=== PATIENT | male | born 1945 | race Caucasian/White ===

== ENCOUNTER 2017-08-27 08:55 | Inpatient (IN) ==
[2017-10-01] MEDS ORDERED: Acetaminophen 325 MG Tablet PO PRN (01:00)
[2017-10-01] MEDS ORDERED: Haloperidol Inj 5 MG/ML Ampul IV.PUSH PRN (01:00)
[2017-10-01] MEDS ORDERED: Chlorhexidine Gluconate 2% 1 Pack (2 Cloths) TOPICAL PRN ×2 (01:00→04:00)
[2017-10-01] MEDS ORDERED: Bisacodyl 10 MG Supp RECTAL PRN (01:00)
[2017-10-01] MEDS ORDERED: Metoprolol Inj 5 MG/5 ML Vial IV.PUSH PRN (01:00)
[2017-10-01] MEDS ORDERED: Chlorhexidine Gluconate 2% 1 Pack (2 Cloths) TOPICAL SCH ×4 (04:00)
[2017-10-01] MEDS: Chlorhexidine Gluconate 2% 1 Pack (2 Cloths) TOPICAL SCH (04:38)
[2017-10-01] MEDS: dilTIAZem CD 180 MG Capsule PO SCH (08:12)
[2017-10-01] MEDS: Metoprolol Tartrate 25 MG Tablet PO SCH ×2 (08:12→21:17)
[2017-10-01] MEDS ORDERED: Famotidine 20 MG Tablet PO SCH (09:00)
--- NOTE | 2017-10-01 14:13 | P.PN ---
Subjective Interval history: Mr. Montemayor was afebrile with stable vital signs at this time. Patient does not reports currently; no chest pain, shortness of breath, abnormal bowel movements , or abnormal urination. Patient expresses a desire to leave the hospital Physical Exam Vital signs: Vital Signs 10/01/17 00:00 10/01/17 00:12 10/01/17 04:00 Temperature 97.7 F 98.0 F Pulse Rate 84 93 H 93 H Respiratory Rate 18 18 Blood Pressure 124/67 115/66 Pulse Oximetry 95 98 10/01/17 08:00 10/01/17 12:00 Temperature 98.2 F 98.0 F Pulse Rate 95 H 89 Respiratory Rate 17 18 Blood Pressure 114/66 106/60 Pulse Oximetry 98 96 Intake & Output 09/30/17 10/01/17 10/01/17 18:59 06:59 18:59 Intake Total 120 / 120 Output Total 200 / 200 Balance -80 / -80 Weight 75.4 kg 75.6 kg Intake: Oral 120 / 120 Output: Urine 200 / 200 Other: # Voids 1 # Bowel Movements 1 Narrative: GENERAL:No apparent distress. Skin: No visible lesions CARDIOVASCULAR: Normal rate and regular rhythm without murmurs. Normal peripheral perfusion RESPIRATORY: Breath sounds equal and clear to auscultation bilaterally. GASTROINTESTINAL: Abdomen soft, non-tender. Normal active bowel sounds Neuro: No focal CN defects. Peripheral motor/sensory function not assessed Results - Labs CBC & Chem 7: 09/29/17 08:35 09/19/17 05:55 Labs: Laboratory Results - last 24 hr 09/29/17 08:35 WBC 5.7 RBC 3.98 L Hgb 12.0 L Hct 35.5 L MCV 89.1 MCH 30.2 MCHC 33.9 RDW 15.8 Plt Count 268 D MPV 7.7 Assessment and Plan - Assessment (1) Pulmonary embolism Code(s): I26.99 - Other pulmonary embolism without acute cor pulmonale Status : Acute (2) Encephalopathy Code(s): G93.40 - Encephalopathy, unspecified Status: Acute (3) Acute respiratory failure with hypoxia Code(s): J96.01 - Acute respiratory failure with hypoxia Status: Resolved (4) Anemia Code(s): D64.9 - Anemia, unspecified Status: Acute - Plan Assessment: 71-year-old male patient who was admitted secondary to respiratory failure, cardiac arrest, PE, and delirium encephalopathy. Patient remains encephalopathic. He needs a guardian appointed. Delirium, metabolic encephalopathy vs some anoxic encephalopathy- Improved Seroquel discontinued. Neurological status stable with no significant improvement. Neurology following Dysphagia Soft Mechanical with [place] Thick liquids PE Impression: Bilateral pulmonary embolism with cardiac arrest. Required intubation on 08/27/2017 extubated on 09/04/2017. s/p TPA Echocardiogram shows ejection fraction of 50-60%, right atrium severely dilated. Stable from a cardiac standpoint -Continue Eliquis Atrial fibrillation Impression: rate currently stable; no recent RVR - on Eliquis - on Cardizem 180 mg po daily - on Lopressor 25 mg po bid - - continue to monitor and adjust History of respiratory failure Impression: Cardiac arrest secondary PE. Intubated; extubated 09/04. Subsequent pleural effusion requiring chest tube placement and subsequent removal 09/13; prior diagnosis of haemophilus influenza pneumonia; s/p Rocephin -Stable respiratory status currently Anemia Impression: stable; reticulocyte count low normal -Hematology consulted Hemoccult-positive stool: No evidence of active GI bleeding Follow CBC- stable Follow for recurrence DVT prophylaxis Eliquis Code Status: DNR Discharge Planning: Palliative care consulted Awaiting guardianship for placement (4) Anemia Qualifiers: Anemia type: unspecified type Qualified Code(s): D64.9 - Anemia, unspecified
[2017-10-02 06:50] LABS: Baso % (Auto) 0.6 % (0.0-2.0); Eos % (Auto) 0.8 % (0.0-4.0); Hematocrit 33.9 % (39.0-51.0); Hemoglobin 11.5 gm/dL (13.0-17.0); Lymph # (Auto) 2.7 th/mm3 (1.0-4.8); Lymph % (Auto) 48.1 % (9.0-44.0); Mean Corpuscular HGB Conc 33.9 % (32.0-36.0); Mean Corpuscular Hemoglobin 29.9 pg (27.0-34.0); Mean Corpuscular Volume 88.2 fL (80.0-100.0); Mean Platelet Volume 7.4 fL (7.0-11.0); Mono # (Auto) 0.8 th/mm3 (0.0-0.9); Mono % (Auto) 15.1 % (0.0-8.0); Neut % (Auto) 35.4 % (16.0-70.0); Platelet Count 317 th/mm3 (150-450); Red Blood Count 3.85 mil/mm3 (4.50-5.90); Red Cell Distribution Width 15.7 % (11.6-17.2); White Blood Count 5.6 th/mm3 (4.0-11.0)
[2017-10-02 07:35] LABS: Anion Gap 8 meq/L (5-15); Blood Urea Nitrogen 8 mg/dL (7-18); Carbon Dioxide 27.7 meq/L (21.0-32.0); Chloride 102 meq/L (98-107); Glomerular Filtration Rate Greater Than 89 mL/min (>89); Glucose,Random 93 mg/dL (74-106); Potassium 4.2 meq/L (3.5-5.1); Sodium 138 meq/L (136-145)
[2017-10-02] MEDS: Metoprolol Tartrate 25 MG Tablet PO SCH ×2 (10:23→22:01)
[2017-10-02] MEDS: dilTIAZem CD 180 MG Capsule PO SCH (10:23)
--- NOTE | 2017-10-02 14:37 | P.PN ---
Subjective Interval history: Mr. Montemayor was afebrile with stable vital signs overnight. Patient states that he would like to leave the hospital. Patient seen eating lunch; patient does not report chest pain, shortness of breath, abnormal bowel movements, or abnormal urination. Physical Exam Vital signs: Vital Signs 10/01/17 16:00 10/01/17 20:00 10/01/17 21:09 Temperature 98.2 F 98.0 F Pulse Rate 98 H 95 H 99 H Respiratory Rate 17 18 Blood Pressure 134/65 122/68 Pulse Oximetry 99 98 10/02/17 00:00 10/02/17 00:30 10/02/17 04:00 Temperature 97.4 F L Pulse Rate 88 84 88 Respiratory Rate 18 Blood Pressure 120/70 Pulse Oximetry 100 10/02/17 06:08 10/02/17 08:00 10/02/17 12:00 Temperature 97.9 F 97.8 F 97.9 F Pulse Rate 90 96 H 102 H Respiratory Rate 17 17 18 Blood Pressure 117/71 122/75 136/75 Pulse Oximetry 98 100 99 Intake & Output 10/01/17 10/02/17 10/02/17 18:59 06:59 18:59 Intake Total 480 / 480 420 / 420 Output Total 700 / 700 Balance 480 / 480 -280 / -280 Weight 75.5 kg Intake: Oral 480 / 480 420 / 420 Output: Urine 700 / 700 Other: # Voids 3 # Bowel Movements 1 0 Narrative: GENERAL:No apparent distress. Skin: No visible lesions CARDIOVASCULAR: Normal rate and regular rhythm without murmurs. Normal peripheral perfusion RESPIRATORY: Breath sounds equal and clear to auscultation bilaterally. GASTROINTESTINAL: Abdomen soft, non-tender. Normal active bowel sounds Neuro: No focal CN defects. Peripheral motor/sensory function not assessed Results - Labs CBC & Chem 7: 10/02/17 05:58 10/02/17 05:58 Laboratory Results - last 24 hr 10/02/17 10/02/17 05:58 05:58 WBC 5.6 RBC 3.85 L Hgb 11.5 L Hct 33.9 L MCV 88.2 MCH 29.9 MCHC 33.9 RDW 15.7 Plt Count 317 MPV 7.4 Neut % (Auto) 35.4 Lymph % (Auto) 48.1 H [place] % (Auto) 15.1 H Eos % (Auto) 0.8 Baso % (Auto) 0.6 Neut # (Auto) 2.0 Lymph # (Auto) 2.7 [place] # (Auto) 0.8 Eos # (Auto) 0.0 Baso # (Auto) 0.0 WBC Differential . Differential Comment Auto diff final Sodium 138 Potassium 4.2 Chloride 102 Carbon Dioxide 27.7 Anion Gap 8 BUN 8 Creatinine 0.60 Estimated GFR Greater than 89 Random Glucose 93 Calcium 8.0 L Assessment and Plan - Assessment (1) Pulmonary embolism Code(s): I26.99 - Other pulmonary embolism without acute cor pulmonale Status : Acute (2) Encephalopathy Code(s): G93.40 - Encephalopathy, unspecified Status: Acute (3) Acute respiratory failure with hypoxia Code(s): J96.01 - Acute respiratory failure with hypoxia Status: Resolved (4) Anemia Code(s): D64.9 - Anemia, unspecified Status: Acute - Plan Assessment: 71-year-old male patient who was admitted secondary to respiratory failure, cardiac arrest, PE, and delirium encephalopathy. Patient remains encephalopathic. He needs a guardian appointed. Delirium, metabolic encephalopathy vs some anoxic encephalopathy- Improved Seroquel discontinued. Neurological status stable with no significant improvement. Neurology following Dysphagia Soft Mechanical with [place] Thick liquids PE Impression: Bilateral pulmonary embolism with cardiac arrest. Required intubation on 08/27/2017 extubated on 09/04/2017. s/p TPA Echocardiogram shows ejection fraction of 50-60%, right atrium severely dilated. Stable from a cardiac standpoint -Continue Eliquis Atrial fibrillation Impression: rate currently stable; no recent RVR - on Eliquis - on Cardizem 180 mg po daily - on Lopressor 25 mg po bid - continue to monitor and adjust History of respiratory failure Impression: Cardiac arrest secondary PE. Intubated; extubated 09/04. Subsequent pleural effusion requiring chest tube placement and subsequent removal 09/13; prior diagnosis of haemophilus influenza pneumonia; s/p Rocephin -Stable respiratory status currently Anemia Impression: stable; reticulocyte count low normal -Hematology consulted Hemoccult-positive stool: No evidence of active GI bleeding Follow CBC- stable Follow for recurrence DVT prophylaxis Eliquis Discharge Planning: Palliative care consulted Awaiting guardianship for placement (4) Anemia Qualifiers: Anemia type: unspecified type Qualified Code(s): D64.9 - Anemia, unspecified
[2017-10-03] MEDS: Metoprolol Tartrate 25 MG Tablet PO SCH ×2 (08:38→21:03)
[2017-10-03] MEDS: dilTIAZem CD 180 MG Capsule PO SCH (08:38)
--- NOTE | 2017-10-03 16:26 | P.PN ---
Subjective Interval history: Mr. Montemayor was afebrile with stable vital signs overnight. Patient states that he would not like to get out of bed today. No chest pain, shortness of breath, abnormal bowel movements, or abnormal urination reported. Physical Exam Vital signs: Vital Signs 10/02/17 20:00 10/03/17 00:00 10/03/17 04:00 Temperature 98.0 F 98.0 F 98.1 F Pulse Rate 90 79 84 Respiratory Rate 17 17 17 Blood Pressure 125/72 96/56 L 108/64 Pulse Oximetry 97 96 96 10/03/17 08:00 10/03/17 12:00 Temperature 97.2 F L 98.4 F Pulse Rate 83 78 Respiratory Rate 20 20 Blood Pressure 126/74 107/59 L Pulse Oximetry 95 96 Intake & Output 10/02/17 10/03/17 10/03/17 18:59 06:59 18:59 Intake Total 600 / 600 240 / 240 Output Total 400 / 400 Balance 600 / 600 -160 / -160 Weight 74.8 kg Intake: Oral 600 / 600 240 / 240 Output: Urine 400 / 400 Other: # Voids 3 1 Date of Last Bowel Movement 10/02/17 # Bowel Movements 1 Narrative: GENERAL:No apparent distress. Skin: No visible lesions CARDIOVASCULAR: Normal rate and regular rhythm without murmurs. Normal peripheral perfusion RESPIRATORY: Breath sounds equal and clear to auscultation bilaterally. GASTROINTESTINAL: Abdomen soft, non-tender. Normal active bowel sounds MSK: No LE edema or calf tenderness Neuro: No focal CN defects. Peripheral motor/sensory function not assessed Results - Labs CBC & Chem 7: 10/02/17 05:58 10/02/17 05:58 Assessment and Plan - Assessment (1) Pulmonary embolism Code(s): I26.99 - Other pulmonary embolism without acute cor pulmonale Status : Acute (2) Encephalopathy Code(s): G93.40 - Encephalopathy, unspecified Status: Acute (3) Acute respiratory failure with hypoxia Code(s): J96.01 - Acute respiratory failure with hypoxia Status: Resolved (4) Anemia Code(s): D64.9 - Anemia, unspecified Status: Acute - Plan Assessment: 72-year-old male patient who was admitted secondary to respiratory failure, cardiac arrest, PE, and delirium encephalopathy. Patient remains encephalopathic. He needs a guardian appointed. Delirium, metabolic encephalopathy vs some anoxic encephalopathy- Improved Seroquel discontinued. Neurological status stable with no significant improvement. Neurology following Dysphagia Soft Mechanical with [place] Thick liquids PE Impression: Bilateral pulmonary embolism with cardiac arrest. Required intubation on 08/27/2017 extubated on 09/04/2017. s/p TPA Echocardiogram shows ejection fraction of 50-60%, right atrium severely dilated. Stable from a cardiac standpoint -Continue Eliquis Atrial fibrillation Impression: rate currently stable; no recent RVR - on Eliquis - on Cardizem 180 mg po daily - on Lopressor 25 mg po bid - continue to monitor and adjust History of respiratory failure Impression: Cardiac arrest secondary PE. Intubated; extubated 09/04. Subsequent pleural effusion requiring chest tube placement and subsequent removal 09/13; prior diagnosis of haemophilus influenza pneumonia; s/p Rocephin -Stable respiratory status currently Anemia Impression: stable; reticulocyte count low normal -Hematology consulted Hemoccult-positive stool: No evidence of active GI bleeding Follow CBC- stable Follow for recurrence DVT prophylaxis Eliquis Discharge Planning: Palliative care consulted Awaiting guardianship for placement (4) Anemia Qualifiers: Anemia type: unspecified type Qualified Code(s): D64.9 - Anemia, unspecified
[2017-10-04] MEDS: Chlorhexidine Gluconate 2% 1 Pack (2 Cloths) TOPICAL SCH (04:09)
--- NOTE | 2017-10-04 09:05 | P.PN ---
Subjective Interval history: Mr. Montemayor was afebrile with stable vital signs overnight. Patient does not report complaints today. No reported chest pain, shortness of breath, or urinary or bowel concerns. Per nursing staff, he had some cough this morning. Physical Exam Vital signs: Vital Signs 10/03/17 12:00 10/03/17 16:00 10/03/17 20:00 Temperature 98.4 F 97.9 F 98.1 F Pulse Rate 78 83 91 H Respiratory Rate 20 20 20 Blood Pressure 107/59 L 104/61 120/83 Pulse Oximetry 96 96 99 10/04/17 00:00 10/04/17 04:00 10/04/17 04:31 Temperature 97.8 F 98 F Pulse Rate 82 88 90 Respiratory Rate 18 19 Blood Pressure 95/72 L 108/75 Pulse Oximetry 93 L Intake & Output 10/03/17 10/04/17 10/04/17 18:59 06:59 18:59 Output Total 2 / 2 Balance -2 / -2 Weight 73.6 kg Output: Urine 2 / 2 Narrative: GENERAL:No apparent distress. Skin: No visible lesions CARDIOVASCULAR: Normal rate and regular rhythm without murmurs. Normal peripheral perfusion RESPIRATORY: Breath sounds equal and clear to auscultation bilaterally. GASTROINTESTINAL: Abdomen soft, non-tender. Normal active bowel sounds MSK: No LE edema or calf tenderness. Grossly normal ROM and motor function; patient able to ambulate well. Neuro: No focal CN defects. Peripheral motor/sensory function not assessed Results - Labs CBC & Chem 7: 10/02/17 05:58 10/02/17 05:58 Assessment and Plan - Assessment (1) Pulmonary embolism Code(s): I26.99 - Other pulmonary embolism without acute cor pulmonale Status : Acute (2) Encephalopathy Code(s): G93.40 - Encephalopathy, unspecified Status: Acute (3) Acute respiratory failure with hypoxia Code(s): J96.01 - Acute respiratory failure with hypoxia Status: Resolved (4) Anemia Code(s): D64.9 - Anemia, unspecified Status: Acute - Plan Assessment: 72-year-old male patient who was admitted secondary to respiratory failure, cardiac arrest, PE, and delirium encephalopathy. Patient remains encephalopathic. He needs a guardian appointed. Delirium, metabolic encephalopathy vs some anoxic encephalopathy- Improved Seroquel discontinued. Neurological status stable with no significant improvement. Neurology following Dysphagia Soft Mechanical with [place] Thick liquids PE Impression: Bilateral pulmonary embolism with cardiac arrest. Required intubation on 08/27/2017 extubated on 09/04/2017. s/p TPA Echocardiogram shows ejection fraction of 50-60%, right atrium severely dilated. Stable from a cardiac standpoint -Continue Eliquis Atrial fibrillation Impression: rate currently stable; no recent RVR - on Eliquis - on Cardizem 180 mg po daily - on Lopressor 25 mg po bid - continue to monitor and adjust History of respiratory failure Impression: Cardiac arrest secondary PE. Intubated; extubated 09/04. Subsequent pleural effusion requiring chest tube placement and subsequent removal 09/13; prior diagnosis of haemophilus influenza pneumonia; s/p Rocephin -Stable respiratory status currently Anemia Impression: stable; reticulocyte count low normal -Hematology consulted Hemoccult-positive stool: No evidence of active GI bleeding Follow CBC- stable Follow for recurrence DVT prophylaxis Eliquis Discharge Planning: Palliative care consulted Awaiting guardianship for placement (4) Anemia Qualifiers: Anemia type: unspecified type Qualified Code(s): D64.9 - Anemia, unspecified
[2017-10-04] MEDS: dilTIAZem CD 180 MG Capsule PO SCH (16:15)
[2017-10-04] MEDS: Metoprolol Tartrate 25 MG Tablet PO SCH ×2 (16:17→20:56)
[2017-10-05] MEDS: dilTIAZem CD 180 MG Capsule PO SCH (08:34)
[2017-10-05] MEDS: Metoprolol Tartrate 25 MG Tablet PO SCH ×2 (08:35→22:52)
--- NOTE | 2017-10-05 10:45 | P.PN ---
Subjective Interval history: Mr. Montemayor was afebrile with stable VS overnight. Patient does not report complaints at this time; he states he is breathing well. No other complaints reported. In regards to questions about bilateral mild wheezing on exam, patient states he sometimes gets "tight". Physical Exam Vital signs: Vital Signs 10/04/17 12:00 10/04/17 16:00 10/04/17 20:00 Temperature 97.6 F 97.8 F 98.1 F Pulse Rate 77 84 86 Respiratory Rate 18 18 18 Blood Pressure 108/62 115/67 127/60 Pulse Oximetry 98 95 96 10/04/17 23:40 10/04/17 23:54 10/05/17 00:00 Temperature 97.8 F Pulse Rate 82 82 Respiratory Rate 16 Blood Pressure 124/56 L Pulse Oximetry 0 L 94 L 10/05/17 04:00 10/05/17 08:00 Temperature 97.5 F L 98.0 F Pulse Rate 87 69 Respiratory Rate 19 16 Blood Pressure 107/56 L 117/64 Pulse Oximetry 93 L 94 L Intake & Output 10/04/17 10/05/17 10/05/17 18:59 06:59 18:59 Intake Total 480 / 480 240 / 240 Balance 480 / 480 240 / 240 Weight 74.2 kg Intake: Oral 480 / 480 240 / 240 Other: # Voids 3 # Urine Di[place] 4 # Bowel Movements 1 Narrative: GENERAL:No apparent distress. Skin: No visible lesions CARDIOVASCULAR: Normal rate and regular rhythm without murmurs. Normal peripheral perfusion RESPIRATORY: Normal rate. Bilateral end expiratory wheezing. No focal congestion GASTROINTESTINAL: Abdomen soft, non-tender. Normal active bowel sounds MSK: No LE edema or calf tenderness. Grossly normal ROM and motor function Neuro: No focal CN defects. Grossly normal peripheral motor/sensory function Results - Labs CBC & Chem 7: 10/02/17 05:58 10/02/17 05:58 Assessment and Plan - Assessment (1) Pulmonary embolism Code(s): I26.99 - Other pulmonary embolism without acute cor pulmonale Status : Acute (2) Encephalopathy Code(s): G93.40 - Encephalopathy, unspecified Status: Acute (3) Acute respiratory failure with hypoxia Code(s): J96.01 - Acute respiratory failure with hypoxia Status: Resolved (4) Anemia Code(s): D64.9 - Anemia, unspecified Status: Acute - Plan Assessment: 72-year-old male patient who was admitted secondary to respiratory failure, cardiac arrest, PE, and delirium encephalopathy. Patient remains encephalopathic. He needs a guardian appointed. Delirium, metabolic encephalopathy vs some anoxic encephalopathy- Improved Seroquel discontinued. Neurological status stable with no significant improvement. Neurology following Mild expiratory wheezing to auscultation on exam today -Will add Duonebs -Since O2 saturations have gradually downtrended from ~98% to ~94% over past several days, will check CXR Dysphagia Soft Mechanical with [place] Thick liquids PE Impression: Bilateral pulmonary embolism with cardiac arrest. Required intubation on 08/27/2017 extubated on 09/04/2017. s/p TPA Echocardiogram shows ejection fraction of 50-60%, right atrium severely dilated. Stable from a cardiac standpoint -Continue Eliquis Atrial fibrillation Impression: rate currently stable; no recent RVR - on Eliquis - on Cardizem 180 mg po daily - on Lopressor 25 mg po bid - continue to monitor and adjust History of respiratory failure Impression: Cardiac arrest secondary PE. Intubated; extubated 09/04. Subsequent pleural effusion requiring chest tube placement and subsequent removal 09/13; prior diagnosis of haemophilus influenza pneumonia; s/p Rocephin -Stable respiratory status currently Anemia Impression: stable; reticulocyte count low normal -Hematology consulted Hemoccult-positive stool: No evidence of active GI bleeding Follow CBC- stable Follow for recurrence DVT prophylaxis Eliquis Discharge Planning: Palliative care consulted Awaiting guardianship for placement (4) Anemia Qualifiers: Anemia type: unspecified type Qualified Code(s): D64.9 - Anemia, unspecified
[2017-10-06] MEDS: Chlorhexidine Gluconate 2% 1 Pack (2 Cloths) TOPICAL SCH (04:43)
--- NOTE | 2017-10-06 07:23 | XR ---
EXAM DATE: 10/06/2017 7:15 AM EDT AGE/SEX: 72 years / Male INDICATIONS: Cough, short of breath CLINICAL DATA: This is the patient's subsequent encounter. Patient reports that signs and symptoms h ave been present for 4 - 6 days and indicates a pain score of Nonresponsive. MEDICAL/SURGICAL HISTORY: . pneumothorax Non-responsive. COMPARISON: [facility] [place], CHEST SINGLE AP, 09/18/2017. [facility] [place], CHEST SINGLE AP, 09/13/2017. . FINDINGS: Portable AP view the chest demonstrates a normal-sized cardiac silhouette. EKG lines overlie the pema ent. Calcified lymph nodes overlie the mediastinum and left hilum. Lungs are underinflated with mild atelectasis at the lung bases. No pleural effusion, airspace consolidation, or pneumothorax is identi fied. The bones and soft tissues demonstrate no acute finding. CONCLUSION: Underinflation with mild atelectasis at the lung bases. Otherwise, no acute finding is identified. Electronically signed by: Marcus Araujo MD 10/06/2017 7:22 AM EDT
[2017-10-06] MEDS: dilTIAZem CD 180 MG Capsule PO SCH (10:00)
[2017-10-06] MEDS: Metoprolol Tartrate 25 MG Tablet PO SCH ×2 (10:00→20:53)
--- NOTE | 2017-10-06 13:32 | P.PN ---
Subjective Interval history: Mr. Montemayor was afebrile with stable vital signs overnight. He was visited while eating lunch today; he declines complaints at this time. Physical Exam Vital signs: Vital Signs 10/05/17 15:19 10/05/17 16:00 10/05/17 18:17 Temperature 98.1 F Pulse Rate 78 90 82 Respiratory Rate 16 Blood Pressure 112/63 Pulse Oximetry 95 95 95 10/05/17 20:00 10/06/17 00:00 10/06/17 04:00 Temperature 97.6 F 97.8 F 97.7 F Pulse Rate 86 94 H 86 Respiratory Rate 18 18 18 Blood Pressure 122/72 115/66 116/70 Pulse Oximetry 97 95 96 10/06/17 08:00 10/06/17 10:28 10/06/17 12:00 Temperature 98.3 F 97.7 F Pulse Rate 87 93 H 101 H Respiratory Rate 20 14 20 Blood Pressure 121/73 120/72 Pulse Oximetry 98 97 95 Intake & Output 10/05/17 10/06/17 10/06/17 18:59 06:59 18:59 Intake Total 720 / 720 480 / 480 Output Total 1000 / 1000 Balance 720 / 720 -520 / -520 Weight 74.6 kg Intake: Oral 720 / 720 480 / 480 Output: Urine 1000 / 1000 Other: # Voids 2 Date of Last Bowel Movement 10/05/17 10/05/17 # Bowel Movements 1 Narrative: GENERAL:No apparent distress. Skin: No visible lesions CARDIOVASCULAR: Normal rate and regular rhythm without murmurs. Normal peripheral perfusion RESPIRATORY: Normal rate. No wheezing or focal congestion today GASTROINTESTINAL: Abdomen soft, non-tender. Normal active bowel sounds MSK: No LE edema or calf tenderness. Grossly normal ROM and motor function Neuro: No focal CN defects. Grossly normal peripheral motor/sensory function Results - Labs CBC & Chem 7: 10/02/17 05:58 10/02/17 05:58 - Imaging Impressions Chest X-Ray 10/06/17 00:00 CONCLUSION: Underinflation with mild atelectasis at the lung bases. Otherwise, no acute finding is identified. Assessment and Plan - Assessment (1) Pulmonary embolism Code(s): I26.99 - Other pulmonary embolism without acute cor pulmonale Status : Acute (2) Encephalopathy Code(s): G93.40 - Encephalopathy, unspecified Status: Acute (3) Acute respiratory failure with hypoxia Code(s): J96.01 - Acute respiratory failure with hypoxia Status: Resolved (4) Anemia Code(s): D64.9 - Anemia, unspecified Status: Acute - Plan Assessment: 72-year-old male patient who was admitted secondary to respiratory failure, cardiac arrest, PE, and delirium encephalopathy. Patient remains encephalopathic. He needs a guardian appointed. Delirium, metabolic encephalopathy vs some anoxic encephalopathy- Improved Seroquel discontinued. Neurological status stable with no significant improvement. Neurology following expiratory wheezing to auscultation on exam 10/06; improved 10/07 Impression: CXR 10/07 w/ suggestion of atelectasis but no other abnormalities -Continue Duonebs Dysphagia Soft Mechanical with [place] Thick liquids PE Impression: Bilateral pulmonary embolism with cardiac arrest. Required intubation on 08/27/2017 extubated on 09/04/2017. s/p TPA Echocardiogram shows ejection fraction of 50-60%, right atrium severely dilated. Stable from a cardiac standpoint -Continue Eliquis Atrial fibrillation Impression: rate currently stable; no recent RVR - on Eliquis - on Cardizem 180 mg po daily - on Lopressor 25 mg po bid - continue to monitor and adjust History of respiratory failure Impression: Cardiac arrest secondary PE. Intubated; extubated 09/04. Subsequent pleural effusion requiring chest tube placement and subsequent removal 09/13; prior diagnosis of haemophilus influenza pneumonia; s/p Rocephin -Stable respiratory status currently Anemia Impression: stable; reticulocyte count low normal -Hematology consulted Hemoccult-positive stool: No evidence of active GI bleeding Follow CBC- stable Follow for recurrence DVT prophylaxis Eliquis Discharge Planning: Palliative care consulted Awaiting guardianship for placement (4) Anemia Qualifiers: Anemia type: unspecified type Qualified Code(s): D64.9 - Anemia, unspecified
[2017-10-07] MEDS: Chlorhexidine Gluconate 2% 1 Pack (2 Cloths) TOPICAL SCH (04:26)
[2017-10-07] MEDS: dilTIAZem CD 180 MG Capsule PO SCH (11:38)
[2017-10-07] MEDS: Metoprolol Tartrate 25 MG Tablet PO SCH ×2 (11:44→21:27)
--- NOTE | 2017-10-07 15:45 | P.PN ---
Subjective Interval history: awake and alert denies any pain, cooperative and oriented to place - "[place]" and year "2017" and his name ff all commands Physical Exam Vital signs: Vital Signs 10/06/17 16:00 10/06/17 20:05 10/06/17 21:34 Temperature 97.9 F Pulse Rate 86 91 H 86 Respiratory Rate 20 20 Blood Pressure 103/63 Pulse Oximetry 95 10/07/17 00:00 10/07/17 04:00 10/07/17 04:15 Temperature 97.7 F 98.0 F Pulse Rate 83 89 84 Respiratory Rate 18 18 14 Blood Pressure 95/54 L 107/58 L Pulse Oximetry 96 94 L 10/07/17 08:00 10/07/17 12:00 10/07/17 15:37 Temperature 98.1 F 98.1 F Pulse Rate 90 97 H 86 Respiratory Rate 20 20 18 Blood Pressure 124/72 112/62 Pulse Oximetry 95 96 Intake & Output 10/06/17 10/07/17 10/07/17 18:59 06:59 18:59 Intake Total 480 / 480 480 / 480 Output Total 800 / 800 300 / 300 Balance -320 / -320 180 / 180 Weight 74 kg Intake: Oral 480 / 480 480 / 480 Output: Urine 800 / 800 300 / 300 Other: Date of Last Bowel Movement 10/05/17 # Bowel Movements 1 - Constitutional no acute distress - Routine HEENT Exam Head: Present: normocephalic Eye: Present: PERRL ENT: Present: mucous membranes moist - Routine Respiratory Exam Present: CTA bilaterally - Routine Cardiovascular Exam Present: RRR - Routine Abdominal Exam Present: soft, normoactive bowel sounds - Routine Extremities Exam Present: full ROM - Routine Neurological Exam Present: alert, CN II-XII intact - Detailed Neurological Exam: Coma Scale Eye Opening: Spontaneous Results - Labs CBC & Chem 7: 10/02/17 05:58 10/02/17 05:58 Assessment and Plan - Assessment (1) Pulmonary embolism Code(s): I26.99 - Other pulmonary embolism without acute cor pulmonale Status : Acute (2) Encephalopathy Code(s): G93.40 - Encephalopathy, unspecified Status: Acute (3) Acute respiratory failure with hypoxia Code(s): J96.01 - Acute respiratory failure with hypoxia Status: Resolved (4) Anemia Code(s): D64.9 - Anemia, unspecified Status: Acute - Plan 72-year-old male patient who was admitted secondary to respiratory failure, cardiac arrest, PE, and delirium encephalopathy. Patient remains encephalopathic. He needs a guardian appointed. Delirium, metabolic encephalopathy vs some anoxic encephalopathy- Improved Seroquel discontinued. Neurological status stable with no significant improvement. Neurology following expiratory wheezing to auscultation on exam 10/06; improved 10/07 Impression: CXR 10/07 w/ suggestion of atelectasis but no other abnormalities -Continue Duonebs Dysphagia Soft Mechanical with [place] Thick liquids PE Impression: Bilateral pulmonary embolism with cardiac arrest. Required intubation on 08/27/2017 extubated on 09/04/2017. s/p TPA Echocardiogram shows ejection fraction of 50-60%, right atrium severely dilated. Stable from a cardiac standpoint -Continue Eliquis Atrial fibrillation Impression: rate currently stable; no recent RVR - on Eliquis - on Cardizem 180 mg po daily - on Lopressor 25 mg po bid - continue to monitor and adjust History of respiratory failure Impression: Cardiac arrest secondary PE. Intubated; extubated 09/04. Subsequent pleural effusion requiring chest tube placement and subsequent removal 09/13; prior diagnosis of haemophilus influenza pneumonia; s/p Rocephin -Stable respiratory status currently Anemia Impression: stable; reticulocyte count low normal -Hematology consulted Hemoccult-positive stool: No evidence of active GI bleeding Follow CBC- stable Follow for recurrence DVT prophylaxis Eliquis Discharge Planning: Palliative care consulted Awaiting guardianship for placement- d/w CM (4) Anemia Qualifiers: Anemia type: unspecified type Qualified Code(s): D64.9 - Anemia, unspecified
[2017-10-08] MEDS: Chlorhexidine Gluconate 2% 1 Pack (2 Cloths) TOPICAL SCH (05:44)
[2017-10-08] MEDS: dilTIAZem CD 180 MG Capsule PO SCH (08:37)
[2017-10-08] MEDS: Metoprolol Tartrate 25 MG Tablet PO SCH ×2 (08:37→21:48)
--- NOTE | 2017-10-08 14:24 | P.PN ---
Subjective Interval history: no complains of pain, says "eating fine" Physical Exam Vital signs: Vital Signs 10/07/17 15:37 10/07/17 16:00 10/07/17 19:17 Temperature 97.7 F Pulse Rate 86 82 81 Respiratory Rate 18 20 Blood Pressure 127/66 Pulse Oximetry 94 L 10/07/17 20:00 10/07/17 21:12 10/08/17 00:00 Temperature 98.1 F 98.0 F Pulse Rate 87 82 81 Respiratory Rate 17 16 18 Blood Pressure 104/57 L 110/76 Pulse Oximetry 95 10/08/17 00:02 10/08/17 02:50 10/08/17 04:00 Temperature 97.6 F Pulse Rate 79 72 75 Respiratory Rate 20 18 Blood Pressure 126/77 Pulse Oximetry 96 10/08/17 07:45 10/08/17 08:00 10/08/17 10:55 Temperature 98.5 F Pulse Rate 80 81 77 Respiratory Rate 18 17 Blood Pressure 141/62 H Pulse Oximetry 95 10/08/17 12:00 Temperature Pulse Rate 88 Respiratory Rate Blood Pressure Pulse Oximetry Intake & Output 10/07/17 10/08/17 10/08/17 18:59 06:59 18:59 Intake Total 600 / 600 480 / 480 Output Total 700 / 700 Balance -100 / -100 480 / 480 Weight 73.5 kg Intake: Oral 600 / 600 480 / 480 Output: Urine 700 / 700 Other: # Voids 4 Date of Last Bowel Movement 10/08/17 10/08/17 # Bowel Movements 2 3 Narrative: awake and alert, "I'm in the same place everyday [place] and it is 2017 "anciteric lungs- no rales regular rhythm abdomen soft, nontender extremities no edema Results - Labs CBC & Chem 7: 10/02/17 05:58 10/02/17 05:58 Assessment and Plan - Assessment (1) Pulmonary embolism Code(s): I26.99 - Other pulmonary embolism without acute cor pulmonale Status : Acute (2) Encephalopathy Code(s): G93.40 - Encephalopathy, unspecified Status: Acute (3) Acute respiratory failure with hypoxia Code(s): J96.01 - Acute respiratory failure with hypoxia Status: Resolved (4) Anemia Code(s): D64.9 - Anemia, unspecified Status: Acute - Plan 72-year-old male patient who was admitted secondary to respiratory failure, cardiac arrest, PE, and delirium encephalopathy. Patient remains encephalopathic. He needs a guardian appointed. Delirium, metabolic encephalopathy vs some anoxic encephalopathy- Improved Seroquel discontinued. Neurological status stable with no significant improvement. Neurology following expiratory wheezing to auscultation on exam 10/06; improved 10/07 Impression: CXR 10/07 w/ suggestion of atelectasis but no other abnormalities -Continue Duonebs Dysphagia Soft Mechanical with [place] Thick liquids PE Impression: Bilateral pulmonary embolism with cardiac arrest. Required intubation on 08/27/2017 extubated on 09/04/2017. s/p TPA Echocardiogram shows ejection fraction of 50-60%, right atrium severely dilated. Stable from a cardiac standpoint -Continue Eliquis Atrial fibrillation Impression: rate currently stable; no recent RVR - on Eliquis - on Cardizem 180 mg po daily - on Lopressor 25 mg po bid - continue to monitor and adjust History of respiratory failure Impression: Cardiac arrest secondary PE. Intubated; extubated 09/04. Subsequent pleural effusion requiring chest tube placement and subsequent removal 09/13; prior diagnosis of haemophilus influenza pneumonia; s/p Rocephin -Stable respiratory status currently Anemia Impression: stable; reticulocyte count low normal -Hematology consulted Hemoccult-positive stool: No evidence of active GI bleeding CBC- stable Follow for recurrence DVT prophylaxis Eliquis Discharge Planning: Palliative care consulted Awaiting guardianship for placement- d/w CM (4) Anemia Qualifiers: Anemia type: unspecified type Qualified Code(s): D64.9 - Anemia, unspecified
[2017-10-09] MEDS: Metoprolol Tartrate 25 MG Tablet PO SCH ×2 (08:30→20:44)
[2017-10-09] MEDS: dilTIAZem CD 180 MG Capsule PO SCH (08:30)
--- NOTE | 2017-10-09 13:47 | P.PN ---
Subjective Interval history: no complaisn very itneractive and oriented x 3 today Physical Exam Vital signs: Vital Signs 10/08/17 15:54 10/08/17 16:00 10/08/17 16:14 Temperature 97.4 F L Pulse Rate 78 107 H 75 Respiratory Rate 18 18 Blood Pressure 131/66 Pulse Oximetry 96 10/08/17 20:00 10/08/17 21:15 10/09/17 00:00 Temperature 98 F 98.9 F Pulse Rate 95 H 82 85 Respiratory Rate 18 16 16 Blood Pressure 133/61 136/61 Pulse Oximetry 95 94 L 98 10/09/17 03:58 10/09/17 04:00 10/09/17 04:05 Temperature 98.4 F Pulse Rate 88 89 93 H Respiratory Rate 16 16 Blood Pressure 122/64 Pulse Oximetry 93 L 10/09/17 08:00 10/09/17 08:41 Temperature 97.9 F Pulse Rate 102 H 107 H Respiratory Rate 20 16 Blood Pressure 120/71 Pulse Oximetry 95 Intake & Output 10/08/17 10/09/17 10/09/17 18:59 06:59 18:59 Intake Total 480 / 480 Output Total 701 / 701 Balance 480 / 480 -701 / -701 Weight 74.2 kg Intake: Oral 480 / 480 Output: Urine 700 / 700 Stool Other: # Voids 3 1 Date of Last Bowel Movement 10/08/17 # Bowel Movements 0 Narrative: awake and alert, "[place], 2017" anicteric lungs- no rales irregular rhythm abdomen soft, nontender extremities no edema neuro stable Results - Labs CBC & Chem 7: 10/02/17 05:58 10/02/17 05:58 Assessment and Plan - Assessment (1) Pulmonary embolism Code(s): I26.99 - Other pulmonary embolism without acute cor pulmonale Status : Acute (2) Encephalopathy Code(s): G93.40 - Encephalopathy, unspecified Status: Acute (3) Acute respiratory failure with hypoxia Code(s): J96.01 - Acute respiratory failure with hypoxia Status: Resolved (4) Anemia Code(s): D64.9 - Anemia, unspecified Status: Acute - Plan 72-year-old male patient who was admitted secondary to respiratory failure, cardiac arrest, PE, and delirium encephalopathy. Patient remains encephalopathic. He needs a guardian appointed. Delirium, metabolic encephalopathy vs some anoxic encephalopathy- Improved Seroquel discontinued. Neurological status stable with no significant improvement. Neurology following e Dysphagia Soft Mechanical with [place] Thick liquids good po PE Impression: Bilateral pulmonary embolism with cardiac arrest. Required intubation on 08/27/2017 extubated on 09/04/2017. s/p TPA Echocardiogram shows ejection fraction of 50-60%, right atrium severely dilated. Stable from a cardiac standpoint -Continue Eliquis Atrial fibrillation Impression: rate currently stable; no recent RVR - on Eliquis - on Cardizem 180 mg po daily - on Lopressor 25 mg po bid - continue to monitor and adjust History of respiratory failure Impression: Cardiac arrest secondary PE. Intubated; extubated 09/04. Subsequent pleural effusion requiring chest tube placement and subsequent removal 09/13; prior diagnosis of haemophilus influenza pneumonia; s/p Rocephin -Stable respiratory status currently xpiratory wheezing to auscultation on exam 10/06; improved 10/07- resolved Impression: CXR 10/07 w/ suggestion of atelectasis but no other abnormalities -Continue Duonebs Anemia Impression: stable; reticulocyte count low normal -Hematology consulted Hemoccult-positive stool: No evidence of active GI bleeding CBC- stable Follow for recurrence DVT prophylaxis Eliquis Discharge Planning: Palliative care consulted Awaiting guardianship for placement- d/w CM (4) Anemia Qualifiers: Anemia type: unspecified type Qualified Code(s): D64.9 - Anemia, unspecified
[2017-10-10] MEDS: Metoprolol Tartrate 25 MG Tablet PO SCH ×2 (08:33→20:15)
[2017-10-10] MEDS: dilTIAZem CD 180 MG Capsule PO SCH (08:37)
[2017-10-10] MEDS: Chlorhexidine Gluconate 2% 1 Pack (2 Cloths) TOPICAL SCH (08:38)
--- NOTE | 2017-10-10 14:58 | P.PN ---
Subjective Interval history: no complains wondering when he will get out of here Physical Exam Vital signs: Vital Signs 10/09/17 15:35 10/09/17 16:00 10/09/17 19:45 Temperature 98.1 F Pulse Rate 83 86 88 Respiratory Rate 16 20 Blood Pressure 104/60 Pulse Oximetry 94 L 10/09/17 20:00 10/10/17 00:00 10/10/17 03:55 Temperature 97.9 F 97.6 F Pulse Rate 88 80 78 Respiratory Rate 16 18 Blood Pressure 108/60 130/73 Pulse Oximetry 95 95 10/10/17 04:00 10/10/17 08:00 10/10/17 12:00 Temperature 98.5 F 98.0 F Pulse Rate 89 76 80 Respiratory Rate 18 20 Blood Pressure 142/68 H 119/74 Pulse Oximetry 96 96 Intake & Output 10/09/17 10/10/17 10/10/17 18:59 06:59 18:59 Intake Total 480 / 480 240 / 240 Output Total 1200 / 1200 Balance 480 / 480 -960 / -960 Weight 73.8 kg Intake: Oral 480 / 480 240 / 240 Output: Urine 1200 / 1200 Other: # Voids 3 # Bowel Movements 0 1 Narrative: awake and alert, "[place], 2017", anicteric lungs- no rales irregular rhythm abdomen soft, nontender extremities no edema neuro stable Results - Labs CBC & Chem 7: 10/02/17 05:58 10/02/17 05:58 Assessment and Plan - Assessment (1) Pulmonary embolism Code(s): I26.99 - Other pulmonary embolism without acute cor pulmonale Status : Acute (2) Encephalopathy Code(s): G93.40 - Encephalopathy, unspecified Status: Acute (3) Acute respiratory failure with hypoxia Code(s): J96.01 - Acute respiratory failure with hypoxia Status: Resolved (4) Anemia Code(s): D64.9 - Anemia, unspecified Status: Acute - Plan 72-year-old male patient who was admitted secondary to respiratory failure, cardiac arrest, PE, and delirium encephalopathy. Patient remains encephalopathic. He needs a guardian appointed. Delirium, metabolic encephalopathy vs some anoxic encephalopathy- Improved Seroquel discontinued. Neurological status stable with no significant improvement. Neurology following Dysphagia Soft Mechanical with [place] Thick liquids good po PE Impression: Bilateral pulmonary embolism with cardiac arrest. Required intubation on 08/27/2017 extubated on 09/04/2017. s/p TPA Echocardiogram shows ejection fraction of 50-60%, right atrium severely dilated. Stable from a cardiac standpoint -Continue Eliquis Atrial fibrillation- rate controlled - on Eliquis - on Cardizem 180 mg po daily - on Lopressor 25 mg po bid - continue to monitor and adjust History of respiratory failure Impression: Cardiac arrest secondary PE. Intubated; extubated 09/04. Subsequent pleural effusion requiring chest tube placement and subsequent removal 09/13; prior diagnosis of haemophilus influenza pneumonia; s/p Rocephin -Stable respiratory status currently xpiratory wheezing to auscultation on exam 10/06; improved 10/07- resolved Impression: CXR 10/07 w/ suggestion of atelectasis but no other abnormalities -Continue Duonebs Anemia Impression: stable; reticulocyte count low normal -Hematology consulted Hemoccult-positive stool: No evidence of active GI bleeding CBC- stable Follow for recurrence DVT prophylaxis Eliquis Discharge Planning: Palliative care consulted Awaiting guardianship for placement- d/w CM (4) Anemia Qualifiers: Anemia type: unspecified type Qualified Code(s): D64.9 - Anemia, unspecified
[2017-10-11] MEDS: Metoprolol Tartrate 25 MG Tablet PO SCH ×2 (08:55→21:07)
[2017-10-11] MEDS: dilTIAZem CD 180 MG Capsule PO SCH (08:55)
[2017-10-11] MEDS: Chlorhexidine Gluconate 2% 1 Pack (2 Cloths) TOPICAL SCH (08:56)
--- NOTE | 2017-10-11 12:27 | P.PN ---
Subjective Interval history: no complains Physical Exam Vital signs: Vital Signs 10/10/17 16:00 10/10/17 19:45 10/10/17 20:00 Temperature 98.1 F 98.0 F Pulse Rate 79 89 84 Respiratory Rate 20 18 Blood Pressure 117/62 122/68 Pulse Oximetry 97 10/10/17 23:45 10/11/17 00:00 10/11/17 03:45 Temperature 98.8 F Pulse Rate 72 76 72 Respiratory Rate 18 Blood Pressure 95/55 L Pulse Oximetry 95 10/11/17 04:00 10/11/17 08:00 Temperature 97.6 F 98.1 F Pulse Rate 77 86 Respiratory Rate 16 18 Blood Pressure 106/63 108/66 Pulse Oximetry 95 96 Intake & Output 10/10/17 10/11/17 10/11/17 18:59 06:59 18:59 Intake Total 480 / 480 480 / 480 Output Total 875 / 875 Balance -395 / -395 480 / 480 Weight 73.6 kg Intake: Oral 480 / 480 480 / 480 Output: Urine 875 / 875 Other: # Voids 2 # Bowel Movements 2 Narrative: awake and alert, ", 2017", anicteric lungs- no rales irregular rhythm abdomen soft, nontender extremities no edema neuro stable Results - Labs CBC & Chem 7: 10/02/17 05:58 10/02/17 05:58 Assessment and Plan - Assessment (1) Pulmonary embolism Code(s): I26.99 - Other pulmonary embolism without acute cor pulmonale Status : Acute (2) Encephalopathy Code(s): G93.40 - Encephalopathy, unspecified Status: Acute (3) Acute respiratory failure with hypoxia Code(s): J96.01 - Acute respiratory failure with hypoxia Status: Resolved (4) Anemia Code(s): D64.9 - Anemia, unspecified Status: Acute - Plan 72-year-old male patient who was admitted secondary to respiratory failure, cardiac arrest, PE, and delirium encephalopathy. Patient remains encephalopathic. He needs a guardian appointed. Delirium, metabolic encephalopathy vs some anoxic encephalopathy- Improved Seroquel discontinued. Neurological status stable with no significant improvement. Neurology following Dysphagia Soft Mechanical with [place] Thick liquids good po PE Impression: Bilateral pulmonary embolism with cardiac arrest. Required intubation on 08/27/2017 extubated on 09/04/2017. s/p TPA Echocardiogram shows ejection fraction of 50-60%, right atrium severely dilated. Stable from a cardiac standpoint -Continue Eliquis Atrial fibrillation- rate controlled - on Eliquis - on Cardizem 180 mg po daily - on Lopressor 25 mg po bid - continue to monitor and adjust History of respiratory failure Impression: Cardiac arrest secondary PE. Intubated; extubated 09/04. Subsequent pleural effusion requiring chest tube placement and subsequent removal 09/13; prior diagnosis of haemophilus influenza pneumonia; s/p Rocephin -Stable respiratory status currently xpiratory wheezing to auscultation on exam 10/06; improved 10/07- resolved Impression: CXR 10/07 w/ suggestion of atelectasis but no other abnormalities -Continue Duonebs Anemia Impression: stable; reticulocyte count low normal Hemoccult-positive stool: No evidence of active GI bleeding CBC- stable Follow for recurrence DVT prophylaxis Eliquis Discharge Planning: Palliative care consulted Awaiting guardianship for placement- d/w CM (4) Anemia Qualifiers: Anemia type: unspecified type Qualified Code(s): D64.9 - Anemia, unspecified
[2017-10-12] MEDS: Chlorhexidine Gluconate 2% 1 Pack (2 Cloths) TOPICAL SCH (03:51)
[2017-10-12] MEDS: Metoprolol Tartrate 25 MG Tablet PO SCH ×2 (08:32→20:27)
[2017-10-12] MEDS: dilTIAZem CD 180 MG Capsule PO SCH (08:33)
--- NOTE | 2017-10-12 11:15 | P.PN ---
Subjective Interval history: patient is awake and alert opriented x 3 interactive patient states he has family in [place] there is a friend who comes visit- and he does not know how to get hold of this family in [place] friend is here to speak with CM Physical Exam Vital signs: Vital Signs 10/11/17 12:00 10/11/17 16:00 10/11/17 19:45 Temperature 98.4 F 98.5 F Pulse Rate 74 78 79 Respiratory Rate 18 18 Blood Pressure 101/56 L 110/65 Pulse Oximetry 96 97 10/11/17 20:00 10/12/17 00:00 10/12/17 00:20 Temperature 98.2 F 98.2 F Pulse Rate 86 75 73 Respiratory Rate 17 16 Blood Pressure 124/68 118/72 Pulse Oximetry 96 97 10/12/17 04:00 10/12/17 04:10 10/12/17 08:00 Temperature 97.1 F L Pulse Rate 86 78 86 Respiratory Rate 16 18 Blood Pressure 142/68 H 134/72 Pulse Oximetry 97 99 Intake & Output 10/11/17 10/12/17 10/12/17 18:59 06:59 18:59 Intake Total 480 / 480 350 / 350 Output Total 550 / 550 1150 / 1150 Balance -70 / -70 -800 / -800 Weight 74 kg Intake: Oral 480 / 480 350 / 350 Output: Urine 550 / 550 1150 / 1150 Other: # Voids 1 Date of Last Bowel Movement 10/11/17 10/11/17 # Bowel Movements 1 1 Narrative: awake and alert, "[place], 2017", identified friend, appropriate anicteric lungs- no rales irregular rhythm abdomen soft, nontender extremities no edema neuro stable Results - Labs CBC & Chem 7: 10/02/17 05:58 10/02/17 05:58 Assessment and Plan - Assessment (1) Pulmonary embolism Code(s): I26.99 - Other pulmonary embolism without acute cor pulmonale Status : Acute (2) Encephalopathy Code(s): G93.40 - Encephalopathy, unspecified Status: Acute (3) Acute respiratory failure with hypoxia Code(s): J96.01 - Acute respiratory failure with hypoxia Status: Resolved (4) Anemia Code(s): D64.9 - Anemia, unspecified Status: Acute - Plan 72-year-old male patient who was admitted secondary to respiratory failure, cardiac arrest, PE, and delirium encephalopathy. Patient remains encephalopathic. He needs a guardian appointed. Delirium, metabolic encephalopathy vs some anoxic encephalopathy- Improved Seroquel discontinued. Neurological status stable with no significant improvement. Neurology following Dysphagia- improved Soft Mechanical with [place] Thick liquids good po PE Impression: Bilateral pulmonary embolism with cardiac arrest. Required intubation on 08/27/2017 extubated on 09/04/2017. s/p TPA Echocardiogram shows ejection fraction of 50-60%, right atrium severely dilated. Stable from a cardiac standpoint -Continue Eliquis Atrial fibrillation- rate controlled - on Eliquis - on Cardizem 180 mg po daily - on Lopressor 25 mg po bid - continue to monitor and adjust History of respiratory failure Impression: Cardiac arrest secondary PE. Intubated; extubated 09/04. Subsequent pleural effusion requiring chest tube placement and subsequent removal 09/13; prior diagnosis of haemophilus influenza pneumonia; s/p Rocephin -Stable respiratory status currently xpiratory wheezing to auscultation on exam 10/06; improved 10/07- resolved Impression: CXR 10/07 w/ suggestion of atelectasis but no other abnormalities -Continue Duonebs Anemia Impression: stable; reticulocyte count low normal Hemoccult-positive stool: No evidence of active GI bleeding CBC- stable Follow for recurrence DVT prophylaxis Eliquis Discharge Planning: Palliative care consulted Awaiting guardianship for placement- d/w CM friend is at bedside- waiting to speak with CM (4) Anemia Qualifiers: Anemia type: unspecified type Qualified Code(s): D64.9 - Anemia, unspecified
[2017-10-13] MEDS: Chlorhexidine Gluconate 2% 1 Pack (2 Cloths) TOPICAL SCH (03:42)
[2017-10-13] MEDS: dilTIAZem CD 180 MG Capsule PO SCH (09:13)
[2017-10-13] MEDS: Metoprolol Tartrate 25 MG Tablet PO SCH ×2 (09:13→20:31)
--- NOTE | 2017-10-13 09:40 | P.PN ---
Subjective Interval history: awake and alert interactive eating on his own good po Physical Exam Vital signs: Vital Signs 10/12/17 12:00 10/12/17 16:00 10/12/17 20:00 Temperature 97.5 F L 98.1 F 98.1 F Pulse Rate 72 71 85 Respiratory Rate 18 18 16 Blood Pressure 104/56 L 121/70 133/66 Pulse Oximetry 97 97 96 10/12/17 23:50 10/13/17 00:00 10/13/17 01:10 Temperature 97.9 F Pulse Rate 80 76 92 H Respiratory Rate 16 Blood Pressure 114/72 Pulse Oximetry 95 10/13/17 04:00 10/13/17 08:00 Temperature 97.3 F L 98.4 F Pulse Rate 86 93 H Respiratory Rate 18 20 Blood Pressure 112/64 140/63 Pulse Oximetry 96 94 L Intake & Output 10/12/17 10/13/17 10/13/17 18:59 06:59 18:59 Intake Total 720 / 720 Output Total 400 / 400 Balance 320 / 320 Weight 73.8 kg Intake: Oral 720 / 720 Output: Urine 400 / 400 Other: # Voids 3 2 Date of Last Bowel Movement 10/12/17 Narrative: awake and alert, "[place], 2017", very interactive anicteric lungs- no rales irregular rhythm abdomen soft, nontender extremities no edema neuro stable Results - Labs CBC & Chem 7: 10/02/17 05:58 10/02/17 05:58 Assessment and Plan - Assessment (1) Pulmonary embolism Code(s): I26.99 - Other pulmonary embolism without acute cor pulmonale Status : Acute (2) Encephalopathy Code(s): G93.40 - Encephalopathy, unspecified Status: Acute (3) Acute respiratory failure with hypoxia Code(s): J96.01 - Acute respiratory failure with hypoxia Status: Resolved (4) Anemia Code(s): D64.9 - Anemia, unspecified Status: Acute - Plan 72-year-old male patient who was admitted secondary to respiratory failure, cardiac arrest, PE, and delirium encephalopathy. Patient remains encephalopathic. He needs a guardian appointed. Delirium, metabolic encephalopathy vs some anoxic encephalopathy- Improved Seroquel discontinued. Neurological status stable with no significant improvement. Neurology following Dysphagia- improved Soft Mechanical with [place] Thick liquids good po PE Impression: Bilateral pulmonary embolism with cardiac arrest. Required intubation on 08/27/2017 extubated on 09/04/2017. s/p TPA Echocardiogram shows ejection fraction of 50-60%, right atrium severely dilated. Stable from a cardiac standpoint -Continue Eliquis Atrial fibrillation- rate controlled - on Eliquis - on Cardizem 180 mg po daily - on Lopressor 25 mg po bid - continue to monitor and adjust History of respiratory failure Impression: Cardiac arrest secondary PE. Intubated; extubated 09/04. Subsequent pleural effusion requiring chest tube placement and subsequent removal 09/13; prior diagnosis of haemophilus influenza pneumonia; s/p Rocephin -Stable respiratory status currently xpiratory wheezing to auscultation on exam 10/06; improved 10/07- resolved Impression: CXR 10/07 w/ suggestion of atelectasis but no other abnormalities -Continue Duonebs Anemia Impression: stable; reticulocyte count low normal Hemoccult-positive stool: No evidence of active GI bleeding CBC- stable Follow for recurrence DVT prophylaxis Eliquis Discharge Planning: Palliative care consulted Awaiting guardianship for placement- d/w CM friend is at bedside 10/12- waiting to speak with CM (4) Anemia Qualifiers: Anemia type: unspecified type Qualified Code(s): D64.9 - Anemia, unspecified
[2017-10-14] MEDS: Chlorhexidine Gluconate 2% 1 Pack (2 Cloths) TOPICAL SCH (03:01)
[2017-10-14] MEDS: dilTIAZem CD 180 MG Capsule PO SCH (08:44)
[2017-10-14] MEDS: Metoprolol Tartrate 25 MG Tablet PO SCH ×2 (08:45→20:52)
--- NOTE | 2017-10-14 11:28 | P.PN ---
Subjective Interval history: up and alert no complains pleasant and itneractive Physical Exam Vital signs: Vital Signs 10/13/17 12:00 10/13/17 16:00 10/13/17 20:00 Temperature 98.1 F 98.2 F 97.8 F Pulse Rate 90 81 91 H Respiratory Rate 20 20 18 Blood Pressure 135/68 119/63 131/63 Pulse Oximetry 96 96 95 10/13/17 23:45 10/14/17 00:00 10/14/17 04:00 Temperature 97.5 F L 97.8 F Pulse Rate 77 87 81 Respiratory Rate 17 16 Blood Pressure 109/65 122/66 Pulse Oximetry 98 94 L 10/14/17 04:05 10/14/17 08:00 Temperature 98.0 F Pulse Rate 75 78 Respiratory Rate 17 Blood Pressure 104/62 Pulse Oximetry 96 Intake & Output 10/13/17 10/14/17 10/14/17 18:59 06:59 18:59 Intake Total 480 / 480 240 / 240 Output Total 400 / 400 750 / 750 Balance 80 / 80 -510 / -510 Weight 72.7 kg Intake: Oral 480 / 480 240 / 240 Output: Urine 400 / 400 750 / 750 Other: # Incontinent Voids 4 Date of Last Bowel Movement 10/12/17 10/13/17 # Bowel Movements 1 Narrative: awake and alert, "[place], 2017", very interactive anicteric lungs- no rales irregular rhythm abdomen soft, nontender extremities no edema neuro stable Results - Labs CBC & Chem 7: 10/02/17 05:58 10/02/17 05:58 Assessment and Plan - Assessment (1) Pulmonary embolism Code(s): I26.99 - Other pulmonary embolism without acute cor pulmonale Status : Acute (2) Encephalopathy Code(s): G93.40 - Encephalopathy, unspecified Status: Acute (3) Acute respiratory failure with hypoxia Code(s): J96.01 - Acute respiratory failure with hypoxia Status: Resolved (4) Anemia Code(s): D64.9 - Anemia, unspecified Status: Acute - Plan 72-year-old male patient who was admitted secondary to respiratory failure, cardiac arrest, PE, and delirium encephalopathy. Patient remains encephalopathic. He needs a guardian appointed. Delirium, metabolic encephalopathy vs some anoxic encephalopathy- Resolved Seroquel discontinued. Neurological status stable Neurology following Dysphagia- improved Soft Mechanical with [place] Thick liquids good po - reconsult speeech- upgrade to regular- reevaluation PE Impression: Bilateral pulmonary embolism with cardiac arrest. Required intubation on 08/27/2017 extubated on 09/04/2017. s/p TPA Echocardiogram shows ejection fraction of 50-60%, right atrium severely dilated. Stable from a cardiac standpoint -Continue Eliquis Atrial fibrillation- rate controlled- sinus on - on Eliquis - on Cardizem 180 mg po daily - on Lopressor 25 mg po bid - continue to monitor and adjust History of respiratory failure Impression: Cardiac arrest secondary PE. Intubated; extubated 09/04. Subsequent pleural effusion requiring chest tube placement and subsequent removal 09/13; prior diagnosis of haemophilus influenza pneumonia; s/p Rocephin -Stable respiratory status currently xpiratory wheezing to auscultation on exam 10/06; improved 10/07- resolved Impression: CXR 10/07 w/ suggestion of atelectasis but no other abnormalities -Continue Duonebs Anemia Impression: stable; reticulocyte count low normal Hemoccult-positive stool: No evidence of active GI bleeding CBC- stable Follow for recurrence DVT prophylaxis Eliquis Discharge Planning: Palliative care consulted Awaiting guardianship for placement- d/w CM friend is at bedside 10/12- waiting to speak with CM (4) Anemia Qualifiers: Anemia type: unspecified type Qualified Code(s): D64.9 - Anemia, unspecified
[2017-10-15] MEDS: Chlorhexidine Gluconate 2% 1 Pack (2 Cloths) TOPICAL SCH (05:33)
[2017-10-15] MEDS: dilTIAZem CD 180 MG Capsule PO SCH (08:38)
[2017-10-15] MEDS: Metoprolol Tartrate 25 MG Tablet PO SCH ×2 (08:38→20:07)
--- NOTE | 2017-10-15 09:35 | P.PN ---
Subjective Interval history: no complains awake and interactive good po Physical Exam Vital signs: Vital Signs 10/14/17 12:00 10/14/17 16:00 10/14/17 20:00 Temperature 97.4 F L 98.2 F 98.0 F Pulse Rate 105 H 80 96 H Respiratory Rate 17 18 18 Blood Pressure 149/82 H 101/61 119/74 Pulse Oximetry 97 96 95 10/15/17 00:00 10/15/17 04:00 Temperature 97.2 F L 98.0 F Pulse Rate 82 78 Respiratory Rate 18 18 Blood Pressure 110/69 113/73 Pulse Oximetry 97 95 Intake & Output 10/14/17 10/15/17 10/15/17 18:59 06:59 18:59 Intake Total 480 / 480 0 / 0 Output Total 300 / 300 Balance 480 / 480 -300 / -300 Weight 73 kg Intake: Oral 480 / 480 0 / 0 Output: Urine 300 / 300 Other: # Voids 2 Date of Last Bowel Movement 10/13/17 # Bowel Movements 1 Narrative: awake and alert, oriented x 3, [place], 2018, very interactive , anicteric lungs- no rales irregular rhythm abdomen soft, nontender extremities no edema gait steady neuro stable Results - Labs CBC & Chem 7: 10/02/17 05:58 10/02/17 05:58 Assessment and Plan - Assessment (1) Pulmonary embolism Code(s): I26.99 - Other pulmonary embolism without acute cor pulmonale Status : Acute (2) Encephalopathy Code(s): G93.40 - Encephalopathy, unspecified Status: Acute (3) Acute respiratory failure with hypoxia Code(s): J96.01 - Acute respiratory failure with hypoxia Status: Resolved (4) Anemia Code(s): D64.9 - Anemia, unspecified Status: Acute - Plan 72-year-old male patient who was admitted secondary to respiratory failure, cardiac arrest, PE, and delirium encephalopathy. Patient remains encephalopathic. He needs a guardian appointed. Delirium, metabolic encephalopathy vs some anoxic encephalopathy- Resolved Seroquel discontinued. Neurological status stable Neurology following Dysphagia- improved Soft Mechanical with [place] Thick liquids good po - reconsult speech- upgrade to regular- reevaluation PE Impression: Bilateral pulmonary embolism with cardiac arrest. Required intubation on 08/27/2017 extubated on 09/04/2017. s/p TPA Echocardiogram shows ejection fraction of 50-60%, right atrium severely dilated. Stable from a cardiac standpoint -Continue Eliquis Atrial fibrillation- rate controlled- sinus on - on Eliquis - on Cardizem 180 mg po daily - on Lopressor 25 mg po bid - continue to monitor History of respiratory failure- esolved Impression: Cardiac arrest secondary PE. Intubated; extubated 09/04. Subsequent pleural effusion requiring chest tube placement and subsequent removal 09/13; prior diagnosis of haemophilus influenza pneumonia; s/p Rocephin -Stable respiratory status currently xpiratory wheezing to auscultation on exam 10/06; improved 10/07- resolved Impression: CXR 10/07 w/ suggestion of atelectasis but no other abnormalities -Continue Duonebs Anemia Impression: stable; reticulocyte count low normal Hemoccult-positive stool: No evidence of active GI bleeding CBC- stable Follow for recurrence DVT prophylaxis Eliquis Discharge Planning: Palliative care consulted Awaiting guardianship for placement- d/w CM friend is at bedside 10/12- waiting to speak with CM per patient - no family here- closes family is a sister in [place] (4) Anemia Qualifiers: Anemia type: unspecified type Qualified Code(s): D64.9 - Anemia, unspecified
[2017-10-16] MEDS: dilTIAZem CD 180 MG Capsule PO SCH (09:53)
[2017-10-16] MEDS: Chlorhexidine Gluconate 2% 1 Pack (2 Cloths) TOPICAL SCH (09:54)
[2017-10-16] MEDS: Metoprolol Tartrate 25 MG Tablet PO SCH ×2 (09:54→20:55)
--- NOTE | 2017-10-16 14:19 | P.PNIM ---
Subjective Interval history: NO NEW COMPLAINTS DW RN AND PT AND CM AWAIT SAFE PLACEMENT Physical Exam Vital signs: Vital Signs 10/15/17 16:00 10/15/17 20:00 10/16/17 00:00 Temperature 98.4 F 98.1 F 97.5 F L Pulse Rate 62 98 H 87 Respiratory Rate 20 18 18 Blood Pressure 125/68 141/73 H 110/63 Pulse Oximetry 95 97 96 10/16/17 04:00 10/16/17 08:00 Temperature 97.9 F 97.4 F L Pulse Rate 82 71 Respiratory Rate 18 18 Blood Pressure 101/58 L 117/64 Pulse Oximetry 95 95 Intake & Output 10/15/17 10/16/17 10/16/17 18:59 06:59 18:59 Intake Total 480 / 480 120 / 120 Output Total 600 / 600 500 / 500 Balance -120 / -120 -380 / -380 Weight 74.4 kg Intake: Oral 480 / 480 120 / 120 Output: Urine 600 / 600 500 / 500 Other: # Voids 1 Date of Last Bowel Movement 10/13/17 # Bowel Movements 0 Narrative: GENERAL: AWAKE AND ALERT AND CONFUSED TALKATIVE AND COOPERATIVE SKIN: Warm and dry. HEAD: Atraumatic. Normocephalic. EYES: Pupils equal and round. No scleral icterus. No injection or drainage. ENT: No nasal bleeding or discharge. Mucous membranes pink and moist. NECK: Trachea midline. No JVD. CARDIOVASCULAR: Regular rate and rhythm. RESPIRATORY: No accessory muscle use. Clear to auscultation. Breath sounds equal bilaterally. GASTROINTESTINAL: Abdomen soft, non-tender, nondistended. Hepatic and splenic margins not palpable. MUSCULOSKELETAL: Extremities without clubbing, cyanosis, or edema. No obvious deformities. NEUROLOGICAL: Awake and alert. No obvious cranial nerve deficits. Motor grossly within normal limits. Five out of 5 muscle strength in the arms and legs. Normal speech. PSYCHIATRIC: INAppropriate mood and affect; insight and judgment ABnormal. Results - Labs CBC & Chem 7: 10/02/17 05:58 10/02/17 05:58 Assessment and Plan - Assessment (1) Pulmonary embolism Code(s): I26.99 - Other pulmonary embolism without acute cor pulmonale Status : Acute (2) Encephalopathy Code(s): G93.40 - Encephalopathy, unspecified Status: Acute (3) Acute respiratory failure with hypoxia Code(s): J96.01 - Acute respiratory failure with hypoxia Status: Resolved (4) Anemia Code(s): D64.9 - Anemia, unspecified Status: Acute - Plan 72-year-old male patient who was admitted secondary to respiratory failure, cardiac arrest, PE, and delirium encephalopathy. Patient remains encephalopathic. He needs a guardian appointed. Delirium, metabolic encephalopathy vs some anoxic encephalopathy- Resolved Seroquel discontinued. Neurological status stable Neurology following Dysphagia- improved Soft Mechanical with [place] Thick liquids good po - reconsult speech- upgrade to regular- reevaluation PE Impression: Bilateral pulmonary embolism with cardiac arrest. Required intubation on 08/27/2017 extubated on 09/04/2017. s/p TPA Echocardiogram shows ejection fraction of 50-60%, right atrium severely dilated. Stable from a cardiac standpoint -Continue Eliquis Atrial fibrillation- rate controlled- sinus on - on Eliquis - on Cardizem 180 mg po daily - on Lopressor 25 mg po bid - continue to monitor History of respiratory failure- esolved Impression: Cardiac arrest secondary PE. Intubated; extubated 09/04. Subsequent pleural effusion requiring chest tube placement and subsequent removal 09/13; prior diagnosis of haemophilus influenza pneumonia; s/p Rocephin -Stable respiratory status currently xpiratory wheezing to auscultation on exam 10/06; improved 10/07- resolved Impression: CXR 10/07 w/ suggestion of atelectasis but no other abnormalities -Continue Duonebs Anemia Impression: stable; reticulocyte count low normal Hemoccult-positive stool: No evidence of active GI bleeding CBC- stable Follow for recurrence DVT prophylaxis Eliquis Discharge Planning: Palliative care consulted Awaiting guardianship for placement- d/w CM friend is at bedside 10/12- waiting to speak with CM per patient - no family here- closes family is a sister in [place] Code Status: FULL CODE Discussed Condition With: RN AND PT AND CM Discharge Planning: AWAIT GUARDIANSHIP (4) Anemia Qualifiers: Anemia type: unspecified type Qualified Code(s): D64.9 - Anemia, unspecified
[2017-10-17] MEDS: Chlorhexidine Gluconate 2% 1 Pack (2 Cloths) TOPICAL SCH (03:21)
[2017-10-17] MEDS: Metoprolol Tartrate 25 MG Tablet PO SCH ×2 (08:03→22:56)
[2017-10-17] MEDS: dilTIAZem CD 180 MG Capsule PO SCH (08:03)
--- NOTE | 2017-10-17 14:09 | P.PNIM ---
Subjective Interval history: 10-16 NO NEW COMPLAINTS DW RN AND PT AND CM AWAIT SAFE PLACEMENT 10-17 NO NEW ISSUES TODAY AWAIT SAFE PLACEMENT DW RN AND PT AND CM Physical Exam Vital signs: Vital Signs 10/16/17 16:00 10/16/17 20:00 10/17/17 00:00 Temperature 97.7 F 98.8 F 98.3 F Pulse Rate 93 H 88 87 Respiratory Rate 18 Blood Pressure 116/56 L 112/57 L 103/58 L Pulse Oximetry 97 96 95 10/17/17 04:00 10/17/17 08:00 10/17/17 12:00 Temperature 97.9 F 98.4 F 98.1 F Pulse Rate 74 72 81 Respiratory Rate 18 Blood Pressure 116/56 L 106/59 L 102/59 L Pulse Oximetry 96 95 95 Intake & Output 10/16/17 10/17/17 10/17/17 18:59 06:59 18:59 Intake Total 720 / 720 240 / 240 Output Total 400 / 400 Balance 720 / 720 -160 / -160 Weight 75.1 kg Intake: Oral 720 / 720 240 / 240 Output: Urine 400 / 400 Other: # Voids 3 2 Date of Last Bowel Movement 10/13/17 10/15/17 10/15/17 # Bowel Movements 1 1 Narrative: GENERAL: AWAKE AND ALERT AND CONFUSED TALKATIVE AND COOPERATIVE SKIN: Warm and dry. HEAD: Atraumatic. Normocephalic. EYES: Pupils equal and round. No scleral icterus. No injection or drainage. ENT: No nasal bleeding or discharge. Mucous membranes pink and moist. NECK: Trachea midline. No JVD. CARDIOVASCULAR: Regular rate and rhythm. RESPIRATORY: No accessory muscle use. Clear to auscultation. Breath sounds equal bilaterally. GASTROINTESTINAL: Abdomen soft, non-tender, nondistended. Hepatic and splenic margins not palpable. MUSCULOSKELETAL: Extremities without clubbing, cyanosis, or edema. No obvious deformities. NEUROLOGICAL: Awake and alert. No obvious cranial nerve deficits. Motor grossly within normal limits. Five out of 5 muscle strength in the arms and legs. Normal speech. PSYCHIATRIC: INAppropriate mood and affect; insight and judgment ABnormal. Results - Labs CBC & Chem 7: 10/02/17 05:58 10/02/17 05:58 Assessment and Plan - Assessment (1) Pulmonary embolism Code(s): I26.99 - Other pulmonary embolism without acute cor pulmonale Status : Acute (2) Encephalopathy Code(s): G93.40 - Encephalopathy, unspecified Status: Acute (3) Acute respiratory failure with hypoxia Code(s): J96.01 - Acute respiratory failure with hypoxia Status: Resolved (4) Anemia Code(s): D64.9 - Anemia, unspecified Status: Acute - Plan 72-year-old male patient who was admitted secondary to respiratory failure, cardiac arrest, PE, and delirium encephalopathy. Patient remains encephalopathic. He needs a guardian appointed. Delirium, metabolic encephalopathy vs some anoxic encephalopathy- Resolved Seroquel discontinued. Neurological status stable Neurology following Dysphagia- improved Soft Mechanical with [place] Thick liquids good po - reconsult speech- upgrade to regular- reevaluation PE Impression: Bilateral pulmonary embolism with cardiac arrest. Required intubation on 08/27/2017 extubated on 09/04/2017. s/p TPA Echocardiogram shows ejection fraction of 50-60%, right atrium severely dilated. Stable from a cardiac standpoint -Continue Eliquis Atrial fibrillation- rate controlled- sinus on - on Eliquis - on Cardizem 180 mg po daily - on Lopressor 25 mg po bid - continue to monitor History of respiratory failure- esolved Impression: Cardiac arrest secondary PE. Intubated; extubated 09/04. Subsequent pleural effusion requiring chest tube placement and subsequent removal 09/13; prior diagnosis of haemophilus influenza pneumonia; s/p Rocephin -Stable respiratory status currently xpiratory wheezing to auscultation on exam 10/06; improved 10/07- resolved Impression: CXR 10/07 w/ suggestion of atelectasis but no other abnormalities -Continue Duonebs Anemia Impression: stable; reticulocyte count low normal Hemoccult-positive stool: No evidence of active GI bleeding CBC- stable Follow for recurrence DVT prophylaxis Eliquis Discharge Planning: Palliative care consulted Awaiting guardianship for placement- d/w CM friend is at bedside 10/12- waiting to speak with CM per patient - no family here- closes family is a sister in [place] Discussed Condition With: RN AND PT AND CM Discharge Planning: AWAIT GUARDIANSHIP (4) Anemia Qualifiers: Anemia type: unspecified type Qualified Code(s): D64.9 - Anemia, unspecified
[2017-10-18] MEDS: Chlorhexidine Gluconate 2% 1 Pack (2 Cloths) TOPICAL SCH (03:30)
[2017-10-18] MEDS: dilTIAZem CD 180 MG Capsule PO SCH (08:01)
[2017-10-18] MEDS: Metoprolol Tartrate 25 MG Tablet PO SCH ×2 (08:01→21:34)
--- NOTE | 2017-10-18 15:26 | P.PNIM ---
Subjective Interval history: 7- NO NEW COMPLAINTS DW RN AND PT AND CM AWAIT SAFE PLACEMENT 10-17 NO NEW ISSUES TODAY AWAIT SAFE PLACEMENT DW RN AND PT AND CM 10-18 NO NEW COMPLAINTS PLANNING ON WASHING TODAY DW RN AND PT AND CM NEEDS GUARDIANSHIP Physical Exam Vital signs: Vital Signs 10/17/17 16:00 10/17/17 20:00 10/18/17 00:00 Temperature 98.3 F 98.1 F 97.4 F L Pulse Rate 78 80 86 Respiratory Rate 18 20 20 Blood Pressure 122/61 123/67 112/64 Pulse Oximetry 95 95 96 10/18/17 04:00 10/18/17 08:00 10/18/17 12:00 Temperature 98.2 F 98.5 F 99.6 F Pulse Rate 74 79 83 Respiratory Rate 17 Blood Pressure 114/74 120/69 119/68 Pulse Oximetry 96 98 96 Intake & Output 10/17/17 10/18/17 10/18/17 18:59 06:59 18:59 Intake Total 600 / 600 Output Total 900 / 900 Balance -300 / -300 Weight 73.6 kg Intake: Oral 600 / 600 Output: Urine 900 / 900 Other: # Voids 3 Date of Last Bowel Movement 10/15/17 10/15/17 10/15/17 Narrative: GENERAL: AWAKE AND ALERT AND CONFUSED TALKATIVE AND COOPERATIVE SKIN: Warm and dry. HEAD: Atraumatic. Normocephalic. EYES: Pupils equal and round. No scleral icterus. No injection or drainage. ENT: No nasal bleeding or discharge. Mucous membranes pink and moist. NECK: Trachea midline. No JVD. CARDIOVASCULAR: Regular rate and rhythm. RESPIRATORY: No accessory muscle use. Clear to auscultation. Breath sounds equal bilaterally. GASTROINTESTINAL: Abdomen soft, non-tender, nondistended. Hepatic and splenic margins not palpable. MUSCULOSKELETAL: Extremities without clubbing, cyanosis, or edema. No obvious deformities. NEUROLOGICAL: Awake and alert. No obvious cranial nerve deficits. Motor grossly within normal limits. Five out of 5 muscle strength in the arms and legs. Normal speech. PSYCHIATRIC: INAppropriate mood and affect; insight and judgment ABnormal. Results - Labs CBC & Chem 7: 10/02/17 05:58 10/02/17 05:58 Assessment and Plan - Assessment (1) Pulmonary embolism Code(s): I26.99 - Other pulmonary embolism without acute cor pulmonale Status : Acute (2) Encephalopathy Code(s): G93.40 - Encephalopathy, unspecified Status: Acute (3) Acute respiratory failure with hypoxia Code(s): J96.01 - Acute respiratory failure with hypoxia Status: Resolved (4) Anemia Code(s): D64.9 - Anemia, unspecified Status: Acute - Plan 72-year-old male patient who was admitted secondary to respiratory failure, cardiac arrest, PE, and delirium encephalopathy. Patient remains encephalopathic. He needs a guardian appointed. Delirium, metabolic encephalopathy vs some anoxic encephalopathy- Resolved Seroquel discontinued. Neurological status stable Neurology following Dysphagia- improved Soft Mechanical with [place] Thick liquids good po - reconsult speech- upgrade to regular- reevaluation PE Impression: Bilateral pulmonary embolism with cardiac arrest. Required intubation on 08/27/2017 extubated on 09/04/2017. s/p TPA Echocardiogram shows ejection fraction of 50-60%, right atrium severely dilated. Stable from a cardiac standpoint -Continue Eliquis Atrial fibrillation- rate controlled- sinus on - on Eliquis - on Cardizem 180 mg po daily - on Lopressor 25 mg po bid - continue to monitor History of respiratory failure- esolved Impression: Cardiac arrest secondary PE. Intubated; extubated 09/04. Subsequent pleural effusion requiring chest tube placement and subsequent removal 09/13; prior diagnosis of haemophilus influenza pneumonia; s/p Rocephin -Stable respiratory status currently xpiratory wheezing to auscultation on exam 10/06; improved 10/07- resolved Impression: CXR 10/07 w/ suggestion of atelectasis but no other abnormalities -Continue Duonebs Anemia Impression: stable; reticulocyte count low normal Hemoccult-positive stool: No evidence of active GI bleeding CBC- stable Follow for recurrence DVT prophylaxis Eliquis Discharge Planning: Palliative care consulted Awaiting guardianship for placement- d/w CM friend is at bedside 10/12- waiting to speak with CM per patient - no family here- closes family is a sister in [place] Code Status: FULL CODE Discussed Condition With: RN AND PT AND CM Discharge Planning: AWAIT GUARDIANSHIP (4) Anemia Qualifiers: Anemia type: unspecified type Qualified Code(s): D64.9 - Anemia, unspecified
[2017-10-19] MEDS: dilTIAZem CD 180 MG Capsule PO SCH (08:13)
[2017-10-19] MEDS: Metoprolol Tartrate 25 MG Tablet PO SCH ×2 (08:13→21:22)
--- NOTE | 2017-10-19 12:17 | P.PNIM ---
Subjective Interval history: 10-16 NO NEW COMPLAINTS DW RN AND PT AND CM AWAIT SAFE PLACEMENT 10-17 NO NEW ISSUES TODAY AWAIT SAFE PLACEMENT DW RN AND PT AND CM 10-18 NO NEW COMPLAINTS PLANNING ON WASHING TODAY DW RN AND PT AND CM NEEDS GUARDIANSHIP 10-19 WORKING WITH PT AND OT NO NEW ISSUES AWAIT GUARDIANSHIP TO BE SET UP Physical Exam Vital signs: Vital Signs 10/18/17 16:00 10/18/17 20:00 10/19/17 00:00 Temperature 99.2 F 98.1 F 98.4 F Pulse Rate 80 85 87 Respiratory Rate 17 16 16 Blood Pressure 115/63 113/61 120/64 Pulse Oximetry 95 96 95 10/19/17 04:00 10/19/17 08:00 Temperature 98 F 98.1 F Pulse Rate 90 88 Respiratory Rate 16 17 Blood Pressure 110/66 127/79 Pulse Oximetry 96 96 Intake & Output 10/18/17 10/19/17 10/19/17 18:59 06:59 18:59 Intake Total 840 / 840 480 / 480 Output Total 600 / 600 150 / 150 Balance 240 / 240 330 / 330 Weight 75.1 kg Intake: Oral 840 / 840 480 / 480 Output: Urine 600 / 600 150 / 150 Other: # Voids 2 Date of Last Bowel Movement 10/15/17 10/18/17 # Bowel Movements 1 1 Narrative: GENERAL: AWAKE AND ALERT AND CONFUSED TALKATIVE AND COOPERATIVE SKIN: Warm and dry. HEAD: Atraumatic. Normocephalic. EYES: Pupils equal and round. No scleral icterus. No injection or drainage. ENT: No nasal bleeding or discharge. Mucous membranes pink and moist. NECK: Trachea midline. No JVD. CARDIOVASCULAR: Regular rate and rhythm. RESPIRATORY: No accessory muscle use. Clear to auscultation. Breath sounds equal bilaterally. GASTROINTESTINAL: Abdomen soft, non-tender, nondistended. Hepatic and splenic margins not palpable. MUSCULOSKELETAL: Extremities without clubbing, cyanosis, or edema. No obvious deformities. NEUROLOGICAL: Awake and alert. No obvious cranial nerve deficits. Motor grossly within normal limits. Five out of 5 muscle strength in the arms and legs. Normal speech. PSYCHIATRIC: INAppropriate mood and affect; insight and judgment ABnormal. Results - Labs CBC & Chem 7: 10/02/17 05:58 10/02/17 05:58 Assessment and Plan - Assessment (1) Pulmonary embolism Code(s): I26.99 - Other pulmonary embolism without acute cor pulmonale Status : Acute (2) Encephalopathy Code(s): G93.40 - Encephalopathy, unspecified Status: Acute (3) Acute respiratory failure with hypoxia Code(s): J96.01 - Acute respiratory failure with hypoxia Status: Resolved (4) Anemia Code(s): D64.9 - Anemia, unspecified Status: Acute - Plan 72-year-old male patient who was admitted secondary to respiratory failure, cardiac arrest, PE, and delirium encephalopathy. Patient remains encephalopathic. He needs a guardian appointed. Delirium, metabolic encephalopathy vs some anoxic encephalopathy- Resolved Seroquel discontinued. Neurological status stable Neurology following Dysphagia- improved Soft Mechanical with [place] Thick liquids good po - reconsult speech- upgrade to regular- reevaluation PE Impression: Bilateral pulmonary embolism with cardiac arrest. Required intubation on 08/27/2017 extubated on 09/04/2017. s/p TPA Echocardiogram shows ejection fraction of 50-60%, right atrium severely dilated. Stable from a cardiac standpoint -Continue Eliquis Atrial fibrillation- rate controlled- sinus on - on Eliquis - on Cardizem 180 mg po daily - on Lopressor 25 mg po bid - continue to monitor History of respiratory failure- esolved Impression: Cardiac arrest secondary PE. Intubated; extubated 09/04. Subsequent pleural effusion requiring chest tube placement and subsequent removal 09/13; prior diagnosis of haemophilus influenza pneumonia; s/p Rocephin -Stable respiratory status currently xpiratory wheezing to auscultation on exam 10/06; improved 10/07- resolved Impression: CXR 10/07 w/ suggestion of atelectasis but no other abnormalities -Continue Duonebs Anemia Impression: stable; reticulocyte count low normal Hemoccult-positive stool: No evidence of active GI bleeding CBC- stable Follow for recurrence DVT prophylaxis Eliquis Discharge Planning: Palliative care consulted Awaiting guardianship for placement- d/w CM friend is at bedside 10/12- waiting to speak with CM per patient - no family here- closes family is a sister in [place] Discussed Condition With: RN AND PT AND CM Discharge Planning: AWAIT GUARDIANSHIP (4) Anemia Qualifiers: Anemia type: unspecified type Qualified Code(s): D64.9 - Anemia, unspecified
[2017-10-20] MEDS: Chlorhexidine Gluconate 2% 1 Pack (2 Cloths) TOPICAL SCH ×2 (05:54→07:07)
[2017-10-20] MEDS: dilTIAZem CD 180 MG Capsule PO SCH (08:16)
[2017-10-20] MEDS: Metoprolol Tartrate 25 MG Tablet PO SCH ×2 (08:17→21:12)
--- NOTE | 2017-10-20 11:39 | P.PNIM ---
Subjective Interval history: in no acute distress. resting comfortably. denies pain. no new complaints. Physical Exam Vital signs: Vital Signs 10/19/17 12:00 10/19/17 16:00 10/19/17 18:45 Temperature 98.0 F 98.1 F 97.4 F L Pulse Rate 82 87 84 Respiratory Rate 17 17 20 Blood Pressure 108/67 108/75 130/91 H Pulse Oximetry 96 97 94 L 10/19/17 20:00 10/20/17 00:00 10/20/17 04:00 Temperature 98.1 F 98.1 F 98.2 F Pulse Rate 84 82 80 Respiratory Rate 18 18 16 Blood Pressure 110/63 113/60 114/64 Pulse Oximetry 96 97 95 10/20/17 08:00 Temperature 97.8 F Pulse Rate 81 Respiratory Rate 20 Blood Pressure 126/67 Pulse Oximetry 97 Intake & Output 10/19/17 10/20/17 10/20/17 18:59 06:59 18:59 Intake Total 840 / 840 480 / 480 Output Total 800 / 800 400 / 400 Balance 40 / 40 80 / 80 Weight 76.1 kg Intake: Oral 840 / 840 480 / 480 Output: Urine 800 / 800 400 / 400 Other: Date of Last Bowel Movement 10/18/17 # Bowel Movements 0 0 - Constitutional no acute distress - Routine Respiratory Exam Present: CTA bilaterally - Routine Cardiovascular Exam Present: RRR - Routine Abdominal Exam Present: soft - Routine Extremities Exam Comments: no pedal edema. - Routine Neurological Exam Present: alert Results - Labs CBC & Chem 7: 10/02/17 05:58 10/02/17 05:58 Assessment and Plan - Assessment (1) Pulmonary embolism Code(s): I26.99 - Other pulmonary embolism without acute cor pulmonale Status : Acute (2) Encephalopathy Code(s): G93.40 - Encephalopathy, unspecified Status: Acute (3) Acute respiratory failure with hypoxia Code(s): J96.01 - Acute respiratory failure with hypoxia Status: Resolved (4) Anemia Code(s): D64.9 - Anemia, unspecified Status: Acute - Plan 72-year-old male patient who was admitted secondary to respiratory failure, cardiac arrest, PE, and delirium encephalopathy. Patient remains encephalopathic. He needs a guardian appointed. Delirium, metabolic encephalopathy vs some anoxic encephalopathy- Resolved Seroquel discontinued. Neurological status stable Neurology following Dysphagia- improved Soft Mechanical with [place] Thick liquids good po seen by ST PE Impression: Bilateral pulmonary embolism with cardiac arrest. Required intubation on 08/27/2017 extubated on 09/04/2017. s/p TPA Echocardiogram shows ejection fraction of 50-60%, right atrium severely dilated. Stable from a cardiac standpoint -Continue Eliquis Atrial fibrillation- rate controlled- sinus on - on Eliquis - on Cardizem 180 mg po daily - on Lopressor 25 mg po bid - continue to monitor History of respiratory failure- resolved Cardiac arrest secondary PE. Intubated; extubated 09/04. Subsequent pleural effusion requiring chest tube placement and subsequent removal 09/13; prior diagnosis of haemophilus influenza pneumonia; s/p Rocephin -Stable respiratory status currently -Continue Duonebs Anemia stable. Hemoccult-positive stool: No evidence of active GI bleeding CBC- stable Follow for recurrence DVT prophylaxis Eliquis Discharge Planning: awaiting guardianship. (4) Anemia Qualifiers: Anemia type: unspecified type Qualified Code(s): D64.9 - Anemia, unspecified
[2017-10-21] MEDS: Chlorhexidine Gluconate 2% 1 Pack (2 Cloths) TOPICAL SCH (06:47)
[2017-10-21] MEDS: Metoprolol Tartrate 25 MG Tablet PO SCH ×2 (08:35→20:46)
[2017-10-21] MEDS: dilTIAZem CD 180 MG Capsule PO SCH (08:36)
--- NOTE | 2017-10-21 11:24 | P.PNIM ---
Subjective Interval history: in no acute distress. is comfortable. no new complaints. Physical Exam Vital signs: Vital Signs 10/20/17 12:00 10/20/17 16:00 10/20/17 20:00 Temperature 97.6 F 97.7 F 97.9 F Pulse Rate 85 92 H 81 Respiratory Rate 20 20 18 Blood Pressure 135/64 129/58 L 113/66 Pulse Oximetry 98 97 96 10/21/17 00:00 10/21/17 04:00 10/21/17 08:00 Temperature 97.8 F 97.8 F 97.9 F Pulse Rate 80 87 81 Respiratory Rate 18 20 20 Blood Pressure 132/76 116/72 131/73 Pulse Oximetry 97 96 95 Intake & Output 10/20/17 10/21/17 10/21/17 18:59 06:59 18:59 Intake Total 480 / 480 960 / 960 Output Total 600 / 600 800 / 800 Balance -120 / -120 160 / 160 Weight 79.6 kg Intake: Oral 480 / 480 960 / 960 Output: Urine 600 / 600 800 / 800 Other: Date of Last Bowel Movement 10/20/17 # Bowel Movements 1 Weight On Admission 76.1 kg - Constitutional no acute distress - Routine Respiratory Exam Present: CTA bilaterally - Routine Abdominal Exam Present: soft - Routine Extremities Exam Comments: no pedal edema. - Routine Neurological Exam Present: alert Results - Labs CBC & Chem 7: 10/02/17 05:58 10/02/17 05:58 Assessment and Plan - Assessment (1) Pulmonary embolism Code(s): I26.99 - Other pulmonary embolism without acute cor pulmonale Status : Acute (2) Encephalopathy Code(s): G93.40 - Encephalopathy, unspecified Status: Acute (3) Acute respiratory failure with hypoxia Code(s): J96.01 - Acute respiratory failure with hypoxia Status: Resolved (4) Anemia Code(s): D64.9 - Anemia, unspecified Status: Acute - Plan 72-year-old male patient who was admitted secondary to respiratory failure, cardiac arrest, PE, and delirium encephalopathy. Patient remains encephalopathic. He needs a guardian appointed. Delirium, metabolic encephalopathy vs some anoxic encephalopathy- Resolved Seroquel discontinued. Neurological status stable evaluated by neurology. Dysphagia- improved Soft Mechanical with [place] Thick liquids good po seen by ST PE Impression: Bilateral pulmonary embolism with cardiac arrest. Required intubation on 08/27/2017 extubated on 09/04/2017. s/p TPA Echocardiogram shows ejection fraction of 50-60%, right atrium severely dilated. Stable from a cardiac standpoint -Continue Eliquis Atrial fibrillation- rate controlled- sinus on - on Eliquis - on Cardizem 180 mg po daily - on Lopressor 25 mg po bid - continue to monitor History of respiratory failure- resolved Cardiac arrest secondary PE. Intubated; extubated 09/04. Subsequent pleural effusion requiring chest tube placement and subsequent removal 09/13; prior diagnosis of haemophilus influenza pneumonia; s/p Rocephin -Stable respiratory status currently -Continue Duonebs Anemia stable. Hemoccult-positive stool: No evidence of active GI bleeding CBC- stable Follow for recurrence DVT prophylaxis Eliquis Discharge Planning: awaiting guardianship. (4) Anemia Qualifiers: Anemia type: unspecified type Qualified Code(s): D64.9 - Anemia, unspecified
[2017-10-22] MEDS: dilTIAZem CD 180 MG Capsule PO SCH (08:46)
[2017-10-22] MEDS: Metoprolol Tartrate 25 MG Tablet PO SCH ×2 (08:46→20:22)
[2017-10-22] MEDS: Chlorhexidine Gluconate 2% 1 Pack (2 Cloths) TOPICAL SCH (08:46)
--- NOTE | 2017-10-22 11:06 | P.PNIM ---
Subjective Interval history: in no acute distress. no change clinically. Physical Exam Vital signs: Vital Signs 10/21/17 12:00 10/21/17 16:00 10/21/17 20:00 Temperature 99.2 F 97.6 F 98 F Pulse Rate 84 79 76 Respiratory Rate 20 20 18 Blood Pressure 110/72 111/59 L 115/66 Pulse Oximetry 95 95 97 10/22/17 00:00 10/22/17 04:00 10/22/17 08:00 Temperature 97.8 F 97.7 F 97.3 F L Pulse Rate 78 76 96 H Respiratory Rate 20 18 20 Blood Pressure 115/68 109/63 106/55 L Pulse Oximetry 97 97 98 Intake & Output 10/21/17 10/22/17 10/22/17 18:59 06:59 18:59 Intake Total 720 / 720 480 / 480 Balance 720 / 720 480 / 480 Weight 78.1 kg Intake: Oral 720 / 720 480 / 480 Other: # Voids 2 # Urine Diapers 4 # Bowel Movements 1 - Constitutional no acute distress - Routine Respiratory Exam Present: CTA bilaterally - Routine Cardiovascular Exam Present: RRR - Routine Abdominal Exam Present: soft - Routine Extremities Exam Comments: no pedal edema. - Routine Neurological Exam Present: alert Results - Labs CBC & Chem 7: 10/02/17 05:58 10/02/17 05:58 Assessment and Plan - Assessment (1) Pulmonary embolism Code(s): I26.99 - Other pulmonary embolism without acute cor pulmonale Status : Acute (2) Encephalopathy Code(s): G93.40 - Encephalopathy, unspecified Status: Acute (3) Acute respiratory failure with hypoxia Code(s): J96.01 - Acute respiratory failure with hypoxia Status: Resolved (4) Anemia Code(s): D64.9 - Anemia, unspecified Status: Acute - Plan 72-year-old male patient who was admitted secondary to respiratory failure, cardiac arrest, PE, and delirium encephalopathy. Patient remains encephalopathic. He needs a guardian appointed. Delirium, metabolic encephalopathy vs some anoxic encephalopathy- Resolved Seroquel discontinued. Neurological status stable evaluated by neurology. Dysphagia- improved Soft Mechanical with [place] Thick liquids good po seen by ST PE Impression: Bilateral pulmonary embolism with cardiac arrest. Required intubation on 08/27/2017 extubated on 09/04/2017. s/p TPA Echocardiogram shows ejection fraction of 50-60%, right atrium severely dilated. Stable from a cardiac standpoint -Continue Eliquis Atrial fibrillation- rate controlled- - on Eliquis - on Cardizem 180 mg po daily - on Lopressor 25 mg po bid - continue to monitor History of respiratory failure- resolved Cardiac arrest secondary PE. Intubated; extubated 09/04. Subsequent pleural effusion requiring chest tube placement and subsequent removal 09/13; prior diagnosis of haemophilus influenza pneumonia; s/p Rocephin -Stable respiratory status currently -Continue Duonebs Anemia stable. Hemoccult-positive stool: No evidence of active GI bleeding CBC- stable Follow for recurrence DVT prophylaxis Eliquis Discharge Planning: awaiting guardianship. (4) Anemia Qualifiers: Anemia type: unspecified type Qualified Code(s): D64.9 - Anemia, unspecified
[2017-10-23] MEDS: Chlorhexidine Gluconate 2% 1 Pack (2 Cloths) TOPICAL SCH (05:54)
[2017-10-23] MEDS: dilTIAZem CD 180 MG Capsule PO SCH (08:17)
[2017-10-23] MEDS: Metoprolol Tartrate 25 MG Tablet PO SCH ×2 (08:17→20:59)
--- NOTE | 2017-10-23 11:17 | P.PNIM ---
Subjective Interval history: in no acute distress. clinically no change. Physical Exam Vital signs: Vital Signs 10/22/17 12:00 10/22/17 16:00 10/22/17 20:00 Temperature 98.1 F 97.4 F L 97.4 F L Pulse Rate 88 85 84 Respiratory Rate 20 20 19 Blood Pressure 123/61 132/71 129/61 Pulse Oximetry 98 96 94 L 10/23/17 00:00 10/23/17 04:00 10/23/17 08:00 Temperature 97.9 F 98.8 F 97.9 F Pulse Rate 86 88 86 Respiratory Rate 17 15 18 Blood Pressure 123/59 L 132/60 117/59 L Pulse Oximetry 96 15 L 97 Intake & Output 10/22/17 10/23/17 10/23/17 18:59 06:59 18:59 Intake Total 900 / 900 240 / 240 Output Total 800 / 800 Balance 900 / 900 -560 / -560 Weight 79.4 kg Intake: Oral 900 / 900 240 / 240 Output: Urine 800 / 800 Other: # Urine Diapers 4 Date of Last Bowel Movement 10/20/17 # Bowel Movements 1 - Routine Respiratory Exam Present: CTA bilaterally - Routine Cardiovascular Exam Present: RRR - Routine Abdominal Exam Present: soft - Routine Extremities Exam Comments: no pedal edema. Results - Labs CBC & Chem 7: 10/02/17 05:58 10/02/17 05:58 Assessment and Plan - Assessment (1) Pulmonary embolism Code(s): I26.99 - Other pulmonary embolism without acute cor pulmonale Status : Acute (2) Encephalopathy Code(s): G93.40 - Encephalopathy, unspecified Status: Acute (3) Acute respiratory failure with hypoxia Code(s): J96.01 - Acute respiratory failure with hypoxia Status: Resolved (4) Anemia Code(s): D64.9 - Anemia, unspecified Status: Acute - Plan 72-year-old male patient who was admitted secondary to respiratory failure, cardiac arrest, PE, and delirium encephalopathy. Patient remains encephalopathic. He needs a guardian appointed. Delirium, metabolic encephalopathy vs some anoxic encephalopathy- Resolved Seroquel discontinued. Neurological status stable evaluated by neurology. Dysphagia- improved Soft Mechanical with [place] Thick liquids good po seen by ST PE Impression: Bilateral pulmonary embolism with cardiac arrest. Required intubation on 08/27/2017 extubated on 09/04/2017. s/p TPA Echocardiogram shows ejection fraction of 50-60%, right atrium severely dilated. Stable from a cardiac standpoint -Continue Eliquis Atrial fibrillation- rate controlled- - on Eliquis - on Cardizem 180 mg po daily - on Lopressor 25 mg po bid - continue to monitor History of respiratory failure- resolved Cardiac arrest secondary PE. Intubated; extubated 09/04. Subsequent pleural effusion requiring chest tube placement and subsequent removal 09/13; prior diagnosis of haemophilus influenza pneumonia; s/p Rocephin -Stable respiratory status currently -Continue Duonebs Anemia stable. Hemoccult-positive stool: No evidence of active GI bleeding CBC- stable Follow for recurrence DVT prophylaxis Eliquis Discharge Planning: awaiting guardianship. (4) Anemia Qualifiers: Anemia type: unspecified type Qualified Code(s): D64.9 - Anemia, unspecified
[2017-10-24] MEDS: Metoprolol Tartrate 25 MG Tablet PO SCH ×2 (08:18→20:06)
[2017-10-24] MEDS: dilTIAZem CD 180 MG Capsule PO SCH (08:18)
--- NOTE | 2017-10-24 11:50 | P.PNIM ---
Subjective Interval history: in no acute distress. no new complaints. Physical Exam Vital signs: Vital Signs 10/23/17 12:00 10/23/17 16:20 10/23/17 20:00 Temperature 98.4 F 98.1 F 97.8 F Pulse Rate 95 H 104 H 87 Respiratory Rate 18 18 20 Blood Pressure 106/59 L 113/60 114/71 Pulse Oximetry 96 92 L 97 10/24/17 00:00 10/24/17 04:00 Temperature 98.0 F 98.2 F Pulse Rate 72 85 Respiratory Rate 18 18 Blood Pressure 102/65 111/72 Pulse Oximetry 96 98 Intake & Output 10/23/17 10/24/17 10/24/17 18:59 06:59 18:59 Intake Total 480 / 480 480 / 480 Output Total 800 / 800 Balance 480 / 480 -320 / -320 Weight 79.7 kg Intake: Oral 480 / 480 480 / 480 Output: Urine 800 / 800 Other: # Voids 3 Date of Last Bowel Movement 10/20/17 10/20/17 10/20/17 # Bowel Movements 1 0 - Routine Respiratory Exam Present: CTA bilaterally - Routine Cardiovascular Exam Present: RRR - Routine Abdominal Exam Present: soft Results - Labs CBC & Chem 7: 10/02/17 05:58 10/02/17 05:58 Assessment and Plan - Assessment (1) Pulmonary embolism Code(s): I26.99 - Other pulmonary embolism without acute cor pulmonale Status : Acute (2) Encephalopathy Code(s): G93.40 - Encephalopathy, unspecified Status: Acute (3) Acute respiratory failure with hypoxia Code(s): J96.01 - Acute respiratory failure with hypoxia Status: Resolved (4) Anemia Code(s): D64.9 - Anemia, unspecified Status: Acute - Plan 72-year-old male patient who was admitted secondary to respiratory failure, cardiac arrest, PE, and delirium encephalopathy. Patient remains encephalopathic. He needs a guardian appointed. Delirium, metabolic encephalopathy vs some anoxic encephalopathy- Resolved Seroquel discontinued. Neurological status stable evaluated by neurology. Dysphagia- improved Soft Mechanical with [place] Thick liquids good po seen by ST PE Impression: Bilateral pulmonary embolism with cardiac arrest. Required intubation on 08/27/2017 extubated on 09/04/2017. s/p TPA Echocardiogram shows ejection fraction of 50-60%, right atrium severely dilated. Stable from a cardiac standpoint -Continue Eliquis Atrial fibrillation- rate controlled- - on Eliquis - on Cardizem 180 mg po daily - on Lopressor 25 mg po bid - continue to monitor History of respiratory failure- resolved Cardiac arrest secondary PE. Intubated; extubated 09/04. Subsequent pleural effusion requiring chest tube placement and subsequent removal 09/13; prior diagnosis of haemophilus influenza pneumonia; s/p Rocephin -Stable respiratory status currently -Continue Duonebs Anemia stable. Hemoccult-positive stool: No evidence of active GI bleeding CBC- stable Follow for recurrence DVT prophylaxis Eliquis Discharge Planning: awaiting guardianship. (4) Anemia Qualifiers: Anemia type: unspecified type Qualified Code(s): D64.9 - Anemia, unspecified
[2017-10-25] MEDS: dilTIAZem CD 180 MG Capsule PO SCH (09:10)
[2017-10-25] MEDS: Metoprolol Tartrate 25 MG Tablet PO SCH ×2 (09:10→20:36)
--- NOTE | 2017-10-25 13:54 | P.PNIM ---
Subjective Interval history: in no distress. clinically no change. Physical Exam Vital signs: Vital Signs 10/24/17 16:00 10/24/17 20:00 10/25/17 00:00 Temperature 98.1 F 97.9 F 97.8 F Pulse Rate 87 83 78 Respiratory Rate 17 16 16 Blood Pressure 126/65 137/61 123/62 Pulse Oximetry 97 97 97 10/25/17 06:00 10/25/17 08:00 10/25/17 12:00 Temperature 97.8 F 98.2 F 98.3 F Pulse Rate 83 71 90 Respiratory Rate 16 16 14 Blood Pressure 127/70 107/64 126/72 Pulse Oximetry 97 97 96 Intake & Output 10/24/17 10/25/17 10/25/17 18:59 06:59 18:59 Intake Total 600 / 600 Output Total 0 / 0 Balance 600 / 600 Weight 81.5 kg Intake: Oral 600 / 600 Output: Stool 0 / 0 Other: # Voids 3 Date of Last Bowel Movement 10/20/17 10/24/17 10/25/17 - Constitutional no acute distress - Routine Respiratory Exam Present: CTA bilaterally - Routine Cardiovascular Exam Present: RRR - Routine Abdominal Exam Present: soft Results - Labs CBC & Chem 7: 10/02/17 05:58 10/02/17 05:58 Assessment and Plan - Assessment (1) Pulmonary embolism Code(s): I26.99 - Other pulmonary embolism without acute cor pulmonale Status : Acute (2) Encephalopathy Code(s): G93.40 - Encephalopathy, unspecified Status: Acute (3) Acute respiratory failure with hypoxia Code(s): J96.01 - Acute respiratory failure with hypoxia Status: Resolved (4) Anemia Code(s): D64.9 - Anemia, unspecified Status: Acute - Plan 72-year-old male patient who was admitted secondary to respiratory failure, cardiac arrest, PE, and delirium encephalopathy. Patient remains encephalopathic. He needs a guardian appointed. Delirium, metabolic encephalopathy vs some anoxic encephalopathy- Resolved Seroquel discontinued. Neurological status stable evaluated by neurology. Dysphagia- improved Soft Mechanical with [place] Thick liquids good po seen by ST PE Impression: Bilateral pulmonary embolism with cardiac arrest. Required intubation on 08/27/2017 extubated on 09/04/2017. s/p TPA Echocardiogram shows ejection fraction of 50-60%, right atrium severely dilated. Stable from a cardiac standpoint -Continue Eliquis Atrial fibrillation- rate controlled- - on Eliquis - on Cardizem 180 mg po daily - on Lopressor 25 mg po bid - continue to monitor History of respiratory failure- resolved Cardiac arrest secondary PE. Intubated; extubated 09/04. Subsequent pleural effusion requiring chest tube placement and subsequent removal 09/13; prior diagnosis of haemophilus influenza pneumonia; s/p Rocephin -Stable respiratory status currently -Continue Duonebs Anemia stable. Hemoccult-positive stool: No evidence of active GI bleeding CBC- stable Follow for recurrence DVT prophylaxis Eliquis Discharge Planning: awaiting guardianship. (4) Anemia Qualifiers: Anemia type: unspecified type Qualified Code(s): D64.9 - Anemia, unspecified
[2017-10-26] MEDS: Metoprolol Tartrate 25 MG Tablet PO SCH ×2 (08:22→21:02)
[2017-10-26] MEDS: dilTIAZem CD 180 MG Capsule PO SCH (08:22)
--- NOTE | 2017-10-26 11:11 | P.PNIM ---
Subjective Interval history: in no distress. no change clinically. Physical Exam Vital signs: Vital Signs 10/25/17 12:00 10/25/17 16:00 10/25/17 20:00 Temperature 98.3 F 98.4 F 97.6 F Pulse Rate 90 87 84 Respiratory Rate 14 16 18 Blood Pressure 126/72 121/64 139/67 Pulse Oximetry 96 96 96 10/26/17 00:00 10/26/17 04:00 10/26/17 08:00 Temperature 97.9 F 97.8 F 98.1 F Pulse Rate 83 80 79 Respiratory Rate 18 18 17 Blood Pressure 105/59 L 120/68 125/66 Pulse Oximetry 97 97 97 Intake & Output 10/25/17 10/26/17 10/26/17 18:59 06:59 18:59 Intake Total 240 / 240 Balance 240 / 240 Weight 81.3 kg Intake: Oral 240 / 240 Other: # Voids 3 Date of Last Bowel Movement 10/25/17 10/26/17 10/26/17 # Bowel Movements 1 - Constitutional no acute distress - Routine Respiratory Exam Present: CTA bilaterally - Routine Cardiovascular Exam Present: RRR - Routine Abdominal Exam Present: soft Results - Labs CBC & Chem 7: 10/02/17 05:58 10/02/17 05:58 Assessment and Plan - Assessment (1) Pulmonary embolism Code(s): I26.99 - Other pulmonary embolism without acute cor pulmonale Status : Acute (2) Encephalopathy Code(s): G93.40 - Encephalopathy, unspecified Status: Acute (3) Acute respiratory failure with hypoxia Code(s): J96.01 - Acute respiratory failure with hypoxia Status: Resolved (4) Anemia Code(s): D64.9 - Anemia, unspecified Status: Acute - Plan 72-year-old male patient who was admitted secondary to respiratory failure, cardiac arrest, PE, and delirium encephalopathy. Patient remains encephalopathic. He needs a guardian appointed. Delirium, metabolic encephalopathy vs some anoxic encephalopathy- Resolved Seroquel discontinued. Neurological status stable evaluated by neurology. Dysphagia- improved Soft Mechanical with [place] Thick liquids good po seen by ST PE Impression: Bilateral pulmonary embolism with cardiac arrest. Required intubation on 08/27/2017 extubated on 09/04/2017. s/p TPA Echocardiogram shows ejection fraction of 50-60%, right atrium severely dilated. Stable from a cardiac standpoint -Continue Eliquis Atrial fibrillation- rate controlled- - on Eliquis - on Cardizem 180 mg po daily - on Lopressor 25 mg po bid - continue to monitor History of respiratory failure- resolved Cardiac arrest secondary PE. Intubated; extubated 09/04. Subsequent pleural effusion requiring chest tube placement and subsequent removal 09/13; prior diagnosis of haemophilus influenza pneumonia; s/p Rocephin -Stable respiratory status currently -Continue Duonebs Anemia stable. Hemoccult-positive stool: No evidence of active GI bleeding CBC- stable Follow for recurrence DVT prophylaxis Eliquis Discharge Planning: awaiting guardianship. (4) Anemia Qualifiers: Anemia type: unspecified type Qualified Code(s): D64.9 - Anemia, unspecified
[2017-10-27] MEDS: Metoprolol Tartrate 25 MG Tablet PO SCH ×2 (09:25→20:41)
[2017-10-27] MEDS: dilTIAZem CD 180 MG Capsule PO SCH (09:26)
--- NOTE | 2017-10-27 10:59 | P.PNIM ---
Subjective Interval history: in no acute distress. no new complaints. Physical Exam Vital signs: Vital Signs 10/26/17 12:00 10/26/17 16:00 10/26/17 20:00 Temperature 98.0 F 98.1 F 98 F Pulse Rate 75 81 82 Respiratory Rate 17 16 16 Blood Pressure 103/59 L 132/63 128/72 Pulse Oximetry 95 97 98 10/27/17 00:00 10/27/17 04:00 10/27/17 08:00 Temperature 98.2 F 97.5 F L 97.8 F Pulse Rate 86 75 81 Respiratory Rate 16 16 17 Blood Pressure 121/68 117/60 139/71 Pulse Oximetry 95 95 96 Intake & Output 10/26/17 10/27/17 10/27/17 18:59 06:59 18:59 Intake Total 1200 / 1200 480 / 480 Output Total 600 / 600 Balance 600 / 600 480 / 480 Weight 81.5 kg Intake: Oral 1200 / 1200 480 / 480 Output: Urine 600 / 600 Other: # Voids 3 4 Date of Last Bowel Movement 10/26/17 10/26/17 # Bowel Movements 1 1 - Routine Respiratory Exam Present: CTA bilaterally - Routine Cardiovascular Exam Present: RRR - Routine Abdominal Exam Present: soft Results - Labs CBC & Chem 7: 10/02/17 05:58 10/02/17 05:58 Assessment and Plan - Assessment (1) Pulmonary embolism Code(s): I26.99 - Other pulmonary embolism without acute cor pulmonale Status : Acute (2) Encephalopathy Code(s): G93.40 - Encephalopathy, unspecified Status: Acute (3) Acute respiratory failure with hypoxia Code(s): J96.01 - Acute respiratory failure with hypoxia Status: Resolved (4) Anemia Code(s): D64.9 - Anemia, unspecified Status: Acute - Plan 72-year-old male patient who was admitted secondary to respiratory failure, cardiac arrest, PE, and delirium encephalopathy. Patient remains encephalopathic. He needs a guardian appointed. Delirium, metabolic encephalopathy vs some anoxic encephalopathy- Resolved Seroquel discontinued. Neurological status stable evaluated by neurology. Dysphagia- improved Soft Mechanical with [place] Thick liquids good po seen by ST PE Impression: Bilateral pulmonary embolism with cardiac arrest. Required intubation on 08/27/2017 extubated on 09/04/2017. s/p TPA Echocardiogram shows ejection fraction of 50-60%, right atrium severely dilated. Stable from a cardiac standpoint -Continue Eliquis Atrial fibrillation- rate controlled- - on Eliquis - on Cardizem 180 mg po daily - on Lopressor 25 mg po bid - continue to monitor History of respiratory failure- resolved Cardiac arrest secondary PE. Intubated; extubated 09/04. Subsequent pleural effusion requiring chest tube placement and subsequent removal 09/13; prior diagnosis of haemophilus influenza pneumonia; s/p Rocephin -Stable respiratory status currently -Continue Duonebs Anemia stable. Hemoccult-positive stool: No evidence of active GI bleeding CBC- stable Follow for recurrence DVT prophylaxis Eliquis Discharge Planning: awaiting guardianship. (4) Anemia Qualifiers: Anemia type: unspecified type Qualified Code(s): D64.9 - Anemia, unspecified
[2017-10-28] MEDS: Metoprolol Tartrate 25 MG Tablet PO SCH ×2 (08:06→20:23)
[2017-10-28] MEDS: dilTIAZem CD 180 MG Capsule PO SCH (08:06)
--- NOTE | 2017-10-28 11:07 | P.PNIM ---
Subjective Interval history: in no acute distress. clinically the same. Physical Exam Vital signs: Vital Signs 10/27/17 12:00 10/27/17 16:00 10/27/17 20:00 Temperature 98.1 F 98.0 F 97.8 F Pulse Rate 80 88 90 Respiratory Rate 17 17 16 Blood Pressure 128/69 136/65 118/61 Pulse Oximetry 97 95 95 10/28/17 00:00 10/28/17 04:00 Temperature 97.9 F 98.1 F Pulse Rate 85 78 Respiratory Rate 16 14 Blood Pressure 120/60 110/60 Pulse Oximetry 95 95 Intake & Output 10/27/17 10/28/17 10/28/17 18:59 06:59 18:59 Intake Total 1800 / 1800 Output Total 900 / 900 Balance 900 / 900 Intake: Oral 1800 / 1800 Output: Urine 900 / 900 Other: Post Void Residual 250 # Voids 3 1 Date of Last Bowel Movement 10/27/17 10/27/17 # Bowel Movements 1 - Constitutional no acute distress - Routine Respiratory Exam Present: CTA bilaterally - Routine Cardiovascular Exam Present: RRR - Routine Abdominal Exam Present: soft Results - Labs CBC & Chem 7: 10/02/17 05:58 10/02/17 05:58 Assessment and Plan - Assessment (1) Pulmonary embolism Code(s): I26.99 - Other pulmonary embolism without acute cor pulmonale Status : Acute (2) Encephalopathy Code(s): G93.40 - Encephalopathy, unspecified Status: Acute (3) Acute respiratory failure with hypoxia Code(s): J96.01 - Acute respiratory failure with hypoxia Status: Resolved (4) Anemia Code(s): D64.9 - Anemia, unspecified Status: Acute - Plan 72-year-old male patient who was admitted secondary to respiratory failure, cardiac arrest, PE, and delirium encephalopathy. Patient remains encephalopathic. He needs a guardian appointed. Delirium, metabolic encephalopathy vs some anoxic encephalopathy- Resolved Seroquel discontinued. Neurological status stable evaluated by neurology. Dysphagia- improved Soft Mechanical with [place] Thick liquids good po seen by ST PE Impression: Bilateral pulmonary embolism with cardiac arrest. Required intubation on 08/27/2017 extubated on 09/04/2017. s/p TPA Echocardiogram shows ejection fraction of 50-60%, right atrium severely dilated. Stable from a cardiac standpoint -Continue Eliquis Atrial fibrillation- rate controlled- - on Eliquis - on Cardizem 180 mg po daily - on Lopressor 25 mg po bid - continue to monitor History of respiratory failure- resolved Cardiac arrest secondary PE. Intubated; extubated 09/04. Subsequent pleural effusion requiring chest tube placement and subsequent removal 09/13; prior diagnosis of haemophilus influenza pneumonia; s/p Rocephin -Stable respiratory status currently -Continue Duonebs Anemia stable. Hemoccult-positive stool: No evidence of active GI bleeding CBC- stable Follow for recurrence DVT prophylaxis Eliquis Discharge Planning: awaiting guardianship. (4) Anemia Qualifiers: Anemia type: unspecified type Qualified Code(s): D64.9 - Anemia, unspecified
[2017-10-29] MEDS: Metoprolol Tartrate 25 MG Tablet PO SCH ×2 (08:19→20:46)
[2017-10-29] MEDS: dilTIAZem CD 180 MG Capsule PO SCH (08:19)
--- NOTE | 2017-10-29 12:11 | P.PNIM ---
Subjective Interval history: in no distress. no new complaints. Physical Exam Vital signs: Vital Signs 10/28/17 16:00 10/28/17 20:00 10/29/17 00:00 Temperature 97.8 F 97.6 F 97.9 F Pulse Rate 78 85 82 Respiratory Rate 18 17 20 Blood Pressure 119/63 131/61 112/65 Pulse Oximetry 95 94 L 97 10/29/17 04:00 10/29/17 08:00 Temperature 98 F 97.9 F Pulse Rate 75 82 Respiratory Rate 18 16 Blood Pressure 113/67 105/75 Pulse Oximetry 96 95 Intake & Output 10/28/17 10/29/17 10/29/17 18:59 06:59 18:59 Intake Total 720 / 720 Output Total 200 / 200 Balance 720 / 720 -200 / -200 Weight 81.6 kg Intake: Oral 720 / 720 Output: Urine 200 / 200 Other: # Voids 8 2 # Bowel Movements 1 - Constitutional no acute distress - Routine Respiratory Exam Present: CTA bilaterally - Routine Cardiovascular Exam Present: RRR - Routine Abdominal Exam Present: soft Results - Labs CBC & Chem 7: 10/02/17 05:58 10/02/17 05:58 Assessment and Plan - Assessment (1) Pulmonary embolism Code(s): I26.99 - Other pulmonary embolism without acute cor pulmonale Status : Acute (2) Encephalopathy Code(s): G93.40 - Encephalopathy, unspecified Status: Acute (3) Acute respiratory failure with hypoxia Code(s): J96.01 - Acute respiratory failure with hypoxia Status: Resolved (4) Anemia Code(s): D64.9 - Anemia, unspecified Status: Acute - Plan 72-year-old male patient who was admitted secondary to respiratory failure, cardiac arrest, PE, and delirium encephalopathy. Patient remains encephalopathic. He needs a guardian appointed. Delirium, metabolic encephalopathy vs some anoxic encephalopathy- Resolved Seroquel discontinued. Neurological status stable evaluated by neurology. Dysphagia- improved Soft Mechanical with [place] Thick liquids seen by ST PE Bilateral pulmonary embolism with cardiac arrest. Required intubation on 2017 extubated on 09/04/2017. s/p TPA Echocardiogram shows ejection fraction of 50-60%, right atrium severely dilated. Stable from a cardiac standpoint -Continue Eliquis Atrial fibrillation- rate controlled- - on Eliquis - on Cardizem 180 mg po daily - on Lopressor 25 mg po bid - continue to monitor History of respiratory failure- resolved Cardiac arrest secondary PE. Intubated; extubated 09/04. Subsequent pleural effusion requiring chest tube placement and subsequent removal 09/13; prior diagnosis of haemophilus influenza pneumonia; s/p Rocephin -Stable respiratory status currently -Continue Duonebs Anemia stable. Hemoccult-positive stool: No evidence of active GI bleeding CBC- stable Follow for recurrence DVT prophylaxis Eliquis Discharge Planning: awaiting guardianship. (4) Anemia Qualifiers: Anemia type: unspecified type Qualified Code(s): D64.9 - Anemia, unspecified
[2017-10-30] MEDS: dilTIAZem CD 180 MG Capsule PO SCH (08:08)
[2017-10-30] MEDS: Metoprolol Tartrate 25 MG Tablet PO SCH ×2 (08:09→20:16)
--- NOTE | 2017-10-30 15:59 | P.PN ---
Subjective Interval history: Patient initially admitted to the hospital on 08/27 s/p cardiac arrest Patient able to tell me his name ant that he is in the hospital and the year, but then wants to talk to me about his, "property." appears to be intermittently confused Offers no medical complaints, appears to be in no acute distress Physical Exam Vital signs: Vital Signs 10/29/17 16:00 10/29/17 20:00 10/30/17 00:00 Temperature 97.7 F 97.6 F 97.9 F Pulse Rate 92 H 86 82 Respiratory Rate 18 20 16 Blood Pressure 155/72 H 122/68 108/64 Pulse Oximetry 96 96 97 10/30/17 04:00 10/30/17 08:00 10/30/17 12:00 Temperature 97.1 F L 98.2 F 97.2 F L Pulse Rate 90 94 H 93 H Respiratory Rate 18 16 16 Blood Pressure 106/60 129/77 142/76 H Pulse Oximetry 94 L 95 95 Intake & Output 10/29/17 10/30/17 10/30/17 18:59 06:59 18:59 Intake Total 480 / 480 1200 / 1200 Balance 480 / 480 1200 / 1200 Weight 82.1 kg Intake: Oral 480 / 480 1200 / 1200 Other: # Voids 2 4 Narrative: GENERAL: awake alert and intermittently confused, appears to be in no acute distress CARDIOVASCULAR: Regular rate and rhythm. RESPIRATORY: No accessory muscle use. Clear to auscultation. Breath sounds equal bilaterally. GASTROINTESTINAL: Abdomen soft, non-tender, nondistended. MUSCULOSKELETAL: Extremities without clubbing, cyanosis, or edema. No obvious deformities. NEUROLOGICAL: Awake and alert. intermittently confused. Motor grossly within normal limits. PSYCHIATRIC: Inappropriate mood and affect; insight and judgment Abnormal. Results - Labs CBC & Chem 7: 10/02/17 05:58 10/02/17 05:58 Assessment and Plan - Plan 72-year-old male patient who was admitted secondary to respiratory failure, cardiac arrest, PE with intermitted confusion Delirium, metabolic encephalopathy vs some anoxic encephalopathy- Resolved Seroquel discontinued. Neurological status stable evaluated by neurology. consult psychiatry to evaluate cognitive function/competency Dysphagia- improved Soft Mechanical with [place] Thick liquids seen by ST PE Bilateral pulmonary embolism with cardiac arrest. Required intubation on 2017 extubated on 09/04/2017. s/p TPA Echocardiogram shows ejection fraction of 50-60%, right atrium severely dilated. Stable from a cardiac standpoint -Continue Eliquis Atrial fibrillation- rate controlled- - on Eliquis - on Cardizem 180 mg po daily - on Lopressor 25 mg po bid - continue to monitor History of respiratory failure- resolved Cardiac arrest secondary PE. Intubated; extubated 09/04. Subsequent pleural effusion requiring chest tube placement and subsequent removal 09/13; prior diagnosis of haemophilus influenza pneumonia; s/p Rocephin -Stable respiratory status currently -Continue Duonebs Anemia stable. Hemoccult-positive stool: No evidence of active GI bleeding CBC- stable Follow for recurrence DVT prophylaxis Eliquis Discharge Planning: awaiting guardianship discussed with supervising physician Dr. Frey
[2017-10-31] MEDS: dilTIAZem CD 180 MG Capsule PO SCH (08:40)
[2017-10-31] MEDS: Metoprolol Tartrate 25 MG Tablet PO SCH ×2 (08:40→20:25)
--- NOTE | 2017-10-31 11:49 | P.PN ---
Subjective Interval history: Patient initially admitted to the hospital on 08/27 s/p cardiac arrest appears to be intermittently confused Offers no medical complaints, appears to be in no acute distress Physical Exam Vital signs: Vital Signs 10/30/17 12:00 10/30/17 16:00 10/30/17 20:00 Temperature 97.2 F L 98.3 F 98.4 F Pulse Rate 93 H 94 H 90 Respiratory Rate 16 16 15 Blood Pressure 142/76 H 150/75 H 142/80 H Pulse Oximetry 95 97 98 10/31/17 00:00 10/31/17 04:00 10/31/17 08:00 Temperature 98.1 F 97.8 F 97.7 F Pulse Rate 84 89 87 Respiratory Rate 17 15 18 Blood Pressure 102/56 L 112/60 115/62 Pulse Oximetry 95 98 95 Intake & Output 10/30/17 10/31/17 10/31/17 18:59 06:59 18:59 Intake Total 540 / 540 Balance 540 / 540 Weight 82.7 kg Intake: Oral 540 / 540 Other: # Voids 300 3 Date of Last Bowel Movement 10/27/17 # Bowel Movements 0 1 Narrative: GENERAL: awake alert and intermittently confused, appears to be in no acute distress CARDIOVASCULAR: Regular rate and rhythm. RESPIRATORY: No accessory muscle use. Clear to auscultation. Breath sounds equal bilaterally. GASTROINTESTINAL: Abdomen soft, non-tender, nondistended. MUSCULOSKELETAL: Extremities without clubbing, cyanosis, or edema. No obvious deformities. NEUROLOGICAL: Awake and alert. intermittently confused. Motor grossly within normal limits. PSYCHIATRIC: Inappropriate mood and affect; insight and judgment Abnormal. Results - Labs CBC & Chem 7: 10/02/17 05:58 10/02/17 05:58 Assessment and Plan - Plan 72-year-old male patient who was admitted secondary to respiratory failure, cardiac arrest, PE with intermitted confusion Delirium, metabolic encephalopathy vs some anoxic encephalopathy- Resolved Seroquel discontinued. Neurological status stable evaluated by neurology. consult psychiatry to evaluate cognitive function/competency Dysphagia- improved Soft Mechanical with [place] Thick liquids seen by ST PE Bilateral pulmonary embolism with cardiac arrest. Required intubation on 2017 extubated on 09/04/2017. s/p TPA Echocardiogram shows ejection fraction of 50-60%, right atrium severely dilated. Stable from a cardiac standpoint -Continue Eliquis Atrial fibrillation- rate controlled- - on Eliquis - on Cardizem 180 mg po daily - on Lopressor 25 mg po bid - continue to monitor History of respiratory failure- resolved Cardiac arrest secondary PE. Intubated; extubated 09/04. Subsequent pleural effusion requiring chest tube placement and subsequent removal 09/13; prior diagnosis of haemophilus influenza pneumonia; s/p Rocephin -Stable respiratory status currently -Continue Duonebs Anemia stable. Hemoccult-positive stool: No evidence of active GI bleeding CBC- stable Follow for recurrence DVT prophylaxis Eliquis Discharge Planning: awaiting guardianship discussed with supervising physician Dr. Taylor
--- NOTE | 2017-10-31 16:36 | P.CONPSY ---
Provisional Diagnosis Admission Date: August 27, 2017 11:01 [place] I.: Psychological factors affecting a medical condition History of Present Illness Service: [facility] Primary Care Provider: UNKNOWN History of Present Illness: The patient is a 72-year-old man, homeless, single, poor social and family support, no psychiatric history, patient who was admitted secondary to respiratory failure, cardiac arrest, PE with intermitted confusion. On psychiatric evaluation patient is oriented 3, denies depression, denies anxiety , but the patient is unable to verbalize a good understanding of his medical problems. He says that the reason is he is in the hospital is because the doctors want to make money of his case. He also is unable to tell me what is his plan once he is discharged to continue taking his medications and follow- ups. He does not seem to be quite collected between the reality of his medical problems, its severity and his decisions for Delirium, metabolic encephalopathy vs some anoxic encephalopathy- Resolved Seroquel discontinued. Neurological status stable evaluated by neurology. consult psychiatry to evaluate cognitive function/competency Dysphagia- improved Soft Mechanical with [place] Thick liquids seen by ST PE Bilateral pulmonary embolism with cardiac arrest. Required intubation on 2017 extubated on 09/04/2017. s/p TPA Echocardiogram shows ejection fraction of 50-60%, right atrium severely dilated. Stable from a cardiac standpoint -Continue Eliquis Atrial fibrillation- rate controlled- - on Eliquis - on Cardizem 180 mg po daily - on Lopressor 25 mg po bid - continue to monitor History of respiratory failure- resolved Cardiac arrest secondary PE. Intubated; extubated 09/04. Subsequent pleural effusion requiring chest tube placement and subsequent removal 09/13; prior diagnosis of haemophilus influenza pneumonia; s/p Rocephin -Stable respiratory status currently -Continue Duonebs Anemia stable. Hemoccult-positive stool: No evidence of active GI bleeding CBC- stable Follow for recurrence DVT prophylaxis Eliquis Medications and Allergies Active Medications: Active Medications Acetaminophen (Tylenol) 650 mg PO Q6H PRN PRN Reason: PAIN 1-2 OR TEMP > 100.4 Hydrocodone Bitart/Acetaminophen ([place] 7.5/325) 1 tab PO Q6H PRN PRN Reason: PAIN 3-5 Al Hydroxide/Mg Hydroxide (Milk Of Magnesia Liq) 30 ml PO Q12H PRN PRN Reason: MILD CONSTIPATION Apixaban (Eliquis) 5 mg PO BID [facility] Last Admin: 10/31/17 08:40 Dose: 5 mg Bisacodyl (Dulcolax Supp) 10 mg RECTAL DAILY PRN PRN Reason: SEVERE CONSITIPATION Diltiazem HCl (Cardizem Cd 24hr) 180 mg PO DAILY [facility] Last Admin: 10/31/17 08:40 Dose: 180 mg Famotidine (Pepcid) 20 mg PO BID [facility] Haloperidol Lactate (Haldol Inj) 2 mg IV.PUSH Q6H PRN PRN Reason: AGITATION AND/OR HALLUCINATION Metoprolol Tartrate (Lopressor Inj) 5 mg IV.PUSH Q6H PRN PRN Reason: HR > 90 Metoprolol Tartrate (Lopressor) 25 mg PO Q12HR [facility] Last Admin: 10/31/17 08:40 Dose: 25 mg Miscellaneous (Pill Splitter) 1 each OTHER UNSCH PRN PRN Reason: SEE LABEL COMMENTS Multivitamins (Theragran) 1 tab PO DAILY [facility] Last Admin: 10/31/17 08:40 Dose: 1 tab Potassium Chloride (Klor-Con 10) 30 meq PO DAILY [facility] Last Admin: 10/31/17 08:39 Dose: 30 meq Sennosides (Senokot) 17.2 mg PO Q12H PRN PRN Reason: MODERATE CONSTIPATION Tamsulosin HCl (Flomax) 0.4 mg PO DAILY [facility] Last Admin: 10/31/17 08:40 Dose: 0.4 mg Thiamine HCl (Vitamin B1) 100 mg PO DAILY [facility] Last Admin: 10/31/17 08:40 Dose: 100 mg Allergies Allergy/AdvReac Type Severity Reaction Status Date / Time No Known Allergies Allergy Verified 09/30/17 11:20 Home Medications Medication Instructions Recorded Confirmed Type No Known Home Medications 09/30/17 09/30/17 History Exam Vital signs: Vital Signs 10/30/17 20:00 10/31/17 00:00 10/31/17 04:00 Temperature 98.4 F 98.1 F 97.8 F Pulse Rate 90 84 89 Respiratory Rate 15 17 15 Blood Pressure 142/80 H 102/56 L 112/60 Pulse Oximetry 98 95 98 10/31/17 08:00 10/31/17 12:00 Temperature 97.7 F 97.5 F L Pulse Rate 87 91 H Respiratory Rate 18 18 Blood Pressure 115/62 123/72 Pulse Oximetry 95 95 Intake & Output 10/30/17 10/31/17 10/31/17 18:59 06:59 18:59 Intake Total 540 / 540 Balance 540 / 540 Weight 82.7 kg Intake: Oral 540 / 540 Other: # Voids 300 3 Date of Last Bowel Movement 10/27/17 # Bowel Movements 0 1 Mental Status Examination Appearance: Appropriate Consciousness: Alert Orientation: x4 Motor Activity: Normal gait Language: Adequate Fund of Knowledge: Adequate Memory: Unremarkable Affect: Appropriate Thought Process & Associations: Intact Thought Content: Appropriate Hallucination Type: None Delusion Type: None Suicidal Ideation: No Suicidal Plan: No Suicidal Intention: No Homicidal Ideation: No Homicidal Plan: No Homicidal Intention: No Assessment and Plan - Assessment (1) Psychological factor affecting physical condition Code(s): F54 - Psychological and behavioral factors associated with disorders or diseases classified elsewhere Status: Acute (2) Delirium Code(s): R41.0 - Disorientation, unspecified Status: Acute - Plan Plan: Estimated LOS: [] days On psychiatric evaluation today the patient presents calm, superficially cooperative, kind of oppositional and irritable. The patient refuses to be discharged to [facility] or skilled nursing. However, the patient is unable to verbalize the reason of his hospitalization, unable to verbalize and appreciation of what his medical conditions represent his life, and unable to present a plan to take care of himself after discharge. The patient does not seem to be realistic regarding his living in physical medical situation. He is oriented 3 at the moment, but he has demonstrated during this hospitalization that he has fluctuating level of consciousness and attention. He does not have decision- making capacity at this moment to participate in his discharge plan. He does not meet criteria for involuntary psychiatric admission. I have not recommending any psychotropic at this moment. Consult appreciated. Justification for Continued Inpatient Stay: No admission is indicated.
[2017-11-01] MEDS: dilTIAZem CD 180 MG Capsule PO SCH (08:58)
[2017-11-01] MEDS: Metoprolol Tartrate 25 MG Tablet PO SCH ×2 (08:58→20:37)
--- NOTE | 2017-11-01 10:52 | P.PN ---
Subjective Interval history: Patient initially admitted with respiratory failure and cardiac arrest in August. Now with intermittent confusion. The patient is currently awake, alert, oriented to to [place], [place]", president [place]. He has no specific medical complaints including no fever/chills, headache, lightheadedness, chest pain, shortness of breath, or abdominal complaints. He is tolerating oral intake. Physical Exam Vital signs: Vital Signs 10/31/17 12:00 10/31/17 16:00 10/31/17 20:00 Temperature 97.5 F L 98.2 F 97.9 F Pulse Rate 91 H 93 H 93 H Respiratory Rate 18 18 16 Blood Pressure 123/72 121/63 115/60 Pulse Oximetry 95 96 96 11/01/17 00:00 11/01/17 04:00 11/01/17 08:00 Temperature 97.9 F 97.9 F 98.3 F Pulse Rate 95 H 88 75 Respiratory Rate 16 16 17 Blood Pressure 120/58 L 113/61 127/75 Pulse Oximetry 96 94 L 93 L Intake & Output 10/31/17 11/01/17 11/01/17 18:59 06:59 18:59 Intake Total 1096 / 1096 720 / 720 Output Total 800 / 800 Balance 296 / 296 720 / 720 Weight 82.5 kg Intake: Oral 1096 / 1096 720 / 720 Output: Urine 800 / 800 Other: # Voids 5 # Bowel Movements 1 0 Narrative: GENERAL: Well-nourished, well-developed pleasant elderly male patient in [facility]. Intermittently confused throughout conversation. SKIN: Warm and dry. No rash. HEENT: Normocephalic. Atraumatic. Pupils equal and round. Mucous membranes pink and moist. CARDIOVASCULAR: Regular rate and rhythm. No murmur appreciated. RESPIRATORY: No accessory muscle use. Clear to auscultation. Breath sounds equal bilaterally. GASTROINTESTINAL: Abdomen soft, non-tender, nondistended. Normoactive bowel sounds x4. MUSCULOSKELETAL: No obvious deformities. Extremities without clubbing, cyanosis , or edema. NEUROLOGICAL: Awake and alert. No obvious cranial nerve deficits. Motor grossly within normal limits. Normal speech. PSYCHIATRIC: Calm mood; insight and judgment limited. Results - Labs CBC & Chem 7: 10/02/17 05:58 10/02/17 05:58 Assessment and Plan - Assessment (1) Pulmonary embolism Code(s): I26.99 - Other pulmonary embolism without acute cor pulmonale Status : Acute (2) Encephalopathy Code(s): G93.40 - Encephalopathy, unspecified Status: Acute (3) Acute respiratory failure with hypoxia Code(s): J96.01 - Acute respiratory failure with hypoxia Status: Resolved (4) Anemia Code(s): D64.9 - Anemia, unspecified Status: Acute - Plan 72-year-old male patient who was admitted secondary to respiratory failure, cardiac arrest, PE with intermitted confusion Delirium, metabolic encephalopathy vs some anoxic encephalopathy- Resolved -Seroquel discontinued. Neurological status stable -evaluated by neurology. -consult psychiatry to evaluate cognitive function/competency, patient does not have decision making capacity -awaiting guardian to be appointed Dysphagia- improved -Soft Mechanical with [place] Thick liquids -seen by ST PE -Bilateral pulmonary embolism with cardiac arrest. Required intubation on 2017 extubated on 09/04/2017. s/p TPA -Echocardiogram shows ejection fraction of 50-60%, right atrium severely dilated. Stable from a cardiac standpoint -Continue Eliquis Atrial fibrillation- rate controlled- - on Eliquis - on Cardizem 180 mg po daily - on Lopressor 25 mg po bid - continue to monitor History of respiratory failure- resolved Cardiac arrest secondary PE. Intubated; extubated 09/04. Subsequent pleural effusion requiring chest tube placement and subsequent removal 09/13; prior diagnosis of haemophilus influenza pneumonia; s/p Rocephin -Stable respiratory status currently -Continue Duonebs Anemia -stable. Hemoccult-positive stool: No evidence of active GI bleeding -CBC- stable -Follow for recurrence DVT prophylaxis: Eliquis Discharge Planning: Awaiting guardianship then plan for discharge to [facility]/SNF. (4) Anemia Qualifiers: Anemia type: unspecified type Qualified Code(s): D64.9 - Anemia, unspecified
[2017-11-02] MEDS: Metoprolol Tartrate 25 MG Tablet PO SCH ×2 (08:23→21:43)
[2017-11-02] MEDS: dilTIAZem CD 180 MG Capsule PO SCH (08:23)
--- NOTE | 2017-11-02 16:11 | P.PNIM ---
Subjective Interval history: No overnight events, no fever or chills. Oriented to self, place and year. Physical Exam Vital signs: Vital Signs 11/01/17 20:00 11/02/17 04:00 11/02/17 08:00 Temperature 97.8 F 97.9 F 98.8 F Pulse Rate 82 72 78 Respiratory Rate 17 16 18 Blood Pressure 119/66 116/60 125/74 Pulse Oximetry 95 95 96 11/02/17 12:00 Temperature 98.1 F Pulse Rate 91 H Respiratory Rate 18 Blood Pressure 129/78 Pulse Oximetry 98 Intake & Output 11/01/17 11/02/17 11/02/17 18:59 06:59 18:59 Intake Total 2460 / 2460 Balance 2460 / 2460 Intake: Oral 960 / 960 Other 1500 / 1500 Other: Post Void Residual 550 Other Intake Source Saline Solution # Voids 4 Date of Last Bowel Movement 11/01/17 11/01/17 11/01/17 # Bowel Movements 1 Narrative: Not in distress Regular rate and rhythm, no murmurs Clear breath sounds Abdomen soft nontender 1+ bilateral ankle edema Alert awake and oriented to place, person and year. Mildly confused. Moves extremities. Normal speech. Results - Labs CBC & Chem 7: 10/02/17 05:58 10/02/17 05:58 Assessment and Plan - Assessment (1) Pulmonary embolism Code(s): I26.99 - Other pulmonary embolism without acute cor pulmonale Status : Acute (2) Encephalopathy Code(s): G93.40 - Encephalopathy, unspecified Status: Acute (3) Acute respiratory failure with hypoxia Code(s): J96.01 - Acute respiratory failure with hypoxia Status: Resolved (4) Anemia Code(s): D64.9 - Anemia, unspecified Status: Acute - Plan 72-year-old male patient who was admitted secondary to respiratory failure, cardiac arrest, PE with intermitted confusion Delirium, metabolic encephalopathy vs some anoxic encephalopathy -Seroquel discontinued. Neurological status stable -evaluated by neurology. -consulte psychiatry to evaluate cognitive function/competency, patient does not have decision making capacity -awaiting guardian to be appointed Dysphagia- improved -Soft Mechanical with [place] Thick liquids -seen by ST PE -Bilateral pulmonary embolism with cardiac arrest. Required intubation on 2017 extubated on 09/04/2017. s/p TPA -Echocardiogram shows ejection fraction of 50-60%, right atrium severely dilated. Stable from a cardiac standpoint -Continue Eliquis Atrial fibrillation- rate controlled- - on Eliquis - on Cardizem 180 mg po daily - on Lopressor 25 mg po bid - continue to monitor History of respiratory failure- resolved Cardiac arrest secondary PE. Intubated; extubated 09/04. Subsequent pleural effusion requiring chest tube placement and subsequent removal 09/13; prior diagnosis of haemophilus influenza pneumonia; s/p Rocephin -Stable respiratory status currently -Continue Duonebs Anemia -stable. Hemoccult-positive stool: No evidence of active GI bleeding -CBC- stable DVT prophylaxis: Eliquis Discharge Planning: Awaiting guardianship then plan for discharge to [facility]. (4) Anemia Qualifiers: Anemia type: unspecified type Qualified Code(s): D64.9 - Anemia, unspecified
[2017-11-03] MEDS: Metoprolol Tartrate 25 MG Tablet PO SCH ×2 (08:37→20:36)
[2017-11-03] MEDS: dilTIAZem CD 180 MG Capsule PO SCH (08:37)
--- NOTE | 2017-11-03 15:49 | P.PNIM ---
Subjective Interval history: No overnight events, no complaints. Physical Exam Vital signs: Vital Signs 11/02/17 16:00 11/02/17 20:00 11/03/17 00:00 Temperature 98.1 F 98.0 F 97.2 F L Pulse Rate 77 90 87 Respiratory Rate 18 18 20 Blood Pressure 125/77 130/70 119/68 Pulse Oximetry 96 96 96 11/03/17 05:45 11/03/17 08:00 11/03/17 12:00 Temperature 97.5 F L 97.7 F 98.9 F Pulse Rate 86 77 80 Respiratory Rate 20 20 18 Blood Pressure 122/81 130/76 119/68 Pulse Oximetry 95 95 96 Intake & Output 11/02/17 11/03/17 11/03/17 18:59 06:59 18:59 Intake Total 720 / 720 340 / 340 Balance 720 / 720 340 / 340 Intake: Oral 720 / 720 340 / 340 Other 0 / 0 Other: # Voids 3 3 Date of Last Bowel Movement 11/01/17 11/01/17 Narrative: Not in distress Regular rate and rhythm, no murmurs Clear breath sounds Abdomen soft nontender 1+ bilateral ankle edema Alert awake and oriented to place, person and year. Mildly confused. Moves extremities. Normal speech. Results - Labs CBC & Chem 7: 10/02/17 05:58 10/02/17 05:58 Assessment and Plan - Assessment (1) Pulmonary embolism Code(s): I26.99 - Other pulmonary embolism without acute cor pulmonale Status : Acute (2) Encephalopathy Code(s): G93.40 - Encephalopathy, unspecified Status: Acute (3) Acute respiratory failure with hypoxia Code(s): J96.01 - Acute respiratory failure with hypoxia Status: Resolved (4) Anemia Code(s): D64.9 - Anemia, unspecified Status: Acute - Plan 72-year-old male patient who was admitted secondary to respiratory failure, cardiac arrest, PE with intermitted confusion Delirium, metabolic encephalopathy vs some anoxic encephalopathy -Seroquel discontinued. Neurological status stable -evaluated by neurology. -consulte psychiatry to evaluate cognitive function/competency, patient does not have decision making capacity -awaiting guardian to be appointed Dysphagia- improved -Soft Mechanical with [place] Thick liquids -seen by ST PE -Bilateral pulmonary embolism with cardiac arrest. Required intubation on 2017 extubated on 09/04/2017. s/p TPA -Echocardiogram shows ejection fraction of 50-60%, right atrium severely dilated. Stable from a cardiac standpoint -Continue Eliquis Atrial fibrillation- rate controlled- - on Eliquis - on Cardizem 180 mg po daily - on Lopressor 25 mg po bid - continue to monitor History of respiratory failure- resolved Cardiac arrest secondary PE. Intubated; extubated 09/04. Subsequent pleural effusion requiring chest tube placement and subsequent removal 09/13; prior diagnosis of haemophilus influenza pneumonia; s/p Rocephin -Stable respiratory status currently -Continue Duonebs Anemia -stable. Hemoccult-positive stool: No evidence of active GI bleeding -CBC- stable DVT prophylaxis: Eliquis Discharge Planning: Awaiting guardianship then plan for discharge to [facility]. (4) Anemia Qualifiers: Anemia type: unspecified type Qualified Code(s): D64.9 - Anemia, unspecified
--- NOTE | 2017-11-04 11:01 | P.PN ---
Subjective Interval history: awake and alert, no complains up and ambulating on exam- rate slightly 90s- low 100s- " I can feel it " earlier refused to take meds now agrees to - instruct nurse to give meds Physical Exam Vital signs: Vital Signs 11/03/17 12:00 11/03/17 17:16 11/03/17 20:00 Temperature 98.9 F 98.2 F 97.8 F Pulse Rate 80 84 84 Respiratory Rate 18 18 16 Blood Pressure 119/68 114/68 112/64 Pulse Oximetry 96 96 96 11/04/17 00:00 11/04/17 04:00 11/04/17 08:00 Temperature 97.6 F 97.5 F L 98.4 F Pulse Rate 95 H 71 86 Respiratory Rate 18 18 16 Blood Pressure 110/66 110/74 147/80 H Pulse Oximetry 95 97 96 Intake & Output 11/03/17 11/04/17 11/04/17 18:59 06:59 18:59 Intake Total 1060 / 1060 600 / 600 Output Total 350 / 350 Balance 1060 / 1060 250 / 250 Weight 81.2 kg Intake: Oral 1060 / 1060 600 / 600 Output: Urine 350 / 350 Other: # Voids 3 Date of Last Bowel Movement 11/03/17 11/03/17 # Bowel Movements 2 1 Narrative: awake and alert, oriented to place "[facility]", year "2017" and person Not in distress Regularrhythm, no murmurs, rate in 90s- low 100s Clear breath sounds Abdomen soft nontender no edema Alert awake and oriented to place, person and year. Moves extremities. Normal speech. gait steady Results - Labs CBC & Chem 7: 10/02/17 05:58 10/02/17 05:58 Assessment and Plan - Assessment (1) Pulmonary embolism Code(s): I26.99 - Other pulmonary embolism without acute cor pulmonale Status : Acute (2) Encephalopathy Code(s): G93.40 - Encephalopathy, unspecified Status: Acute (3) Acute respiratory failure with hypoxia Code(s): J96.01 - Acute respiratory failure with hypoxia Status: Resolved (4) Anemia Code(s): D64.9 - Anemia, unspecified Status: Acute - Plan 72-year-old male patient who was admitted secondary to respiratory failure, cardiac arrest, PE with intermitted confusion Delirium, metabolic encephalopathy vs some anoxic encephalopathy- IMproved -Seroquel discontinued. Neurological status stable -evaluated by neurology. -consulted psychiatry to evaluate cognitive function/competency, patient does not have decision making capacity -awaiting guardian to be appointed Dysphagia- improved -Soft Mechanical with [place] Thick liquids PE -Bilateral pulmonary embolism with cardiac arrest. Required intubation on 2017 extubated on 09/04/2017. s/p TPA -Echocardiogram shows ejection fraction of 50-60%, right atrium severely dilated. Stable from a cardiac standpoint -Continue Eliquis Atrial fibrillation- rate controlled- in SR on exam- - on Eliquis - on Cardizem 180 mg po daily - on Lopressor 25 mg po bid - continue to monitor - d/w patient to take meds-- History of respiratory failure- resolved Cardiac arrest secondary PE. Intubated; extubated 09/04. Subsequent pleural effusion requiring chest tube placement and subsequent removal 09/13; prior diagnosis of haemophilus influenza pneumonia; s/p Rocephin -Stable respiratory status currently -Continue Duonebs Anemia -stable. Hemoccult-positive stool: No evidence of active GI bleeding -CBC- stable DVT prophylaxis: Eliquis Discharge Planning: Awaiting guardianship then plan for discharge to [facility]. Awaiting guardianship for placement- d/w CM per patient - no family here- closes family is a sister in [place]- and he does not want to move there (4) Anemia Qualifiers: Anemia type: unspecified type Qualified Code(s): D64.9 - Anemia, unspecified
[2017-11-04] MEDS: Metoprolol Tartrate 25 MG Tablet PO SCH ×2 (11:07→21:27)
[2017-11-04] MEDS: dilTIAZem CD 180 MG Capsule PO SCH (11:08)
[2017-11-05] MEDS: Metoprolol Tartrate 25 MG Tablet PO SCH ×2 (08:16→20:37)
[2017-11-05] MEDS: dilTIAZem CD 180 MG Capsule PO SCH (08:16)
--- NOTE | 2017-11-05 11:04 | P.PN ---
Subjective Interval history: awake and alert, no comoplains sinus on exam taking po Physical Exam Vital signs: Vital Signs 11/04/17 12:00 11/04/17 16:00 11/04/17 20:00 Temperature 97.9 F 98.0 F 98.1 F Pulse Rate 94 H 89 88 Respiratory Rate 18 18 17 Blood Pressure 135/75 128/68 130/79 Pulse Oximetry 96 96 98 11/05/17 00:00 11/05/17 04:00 11/05/17 08:00 Temperature 97.9 F 97.8 F 97.3 F L Pulse Rate 82 75 74 Respiratory Rate 15 15 22 Blood Pressure 128/72 117/54 L 124/63 Pulse Oximetry 97 99 97 Intake & Output 11/04/17 11/05/17 11/05/17 18:59 06:59 18:59 Intake Total 640 / 640 Output Total 200 / 200 Balance 640 / 640 -200 / -200 Weight 82.6 kg Intake: Oral 640 / 640 Output: Urine 200 / 200 Other: # Voids 8 3 Date of Last Bowel Movement 11/03/17 11/03/17 # Bowel Movements 1 1 Narrative: awake and alert, oriented x 3, interactive and appropriate Not in distress Regular rhythm, rate 80 Clear breath sounds Abdomen soft nontender no edema Alert awake and oriented to place, person and year. Moves extremities. Normal speech. gait steady Results - Labs CBC & Chem 7: 10/02/17 05:58 10/02/17 05:58 Assessment and Plan - Assessment (1) Pulmonary embolism Code(s): I26.99 - Other pulmonary embolism without acute cor pulmonale Status : Acute (2) Encephalopathy Code(s): G93.40 - Encephalopathy, unspecified Status: Acute (3) Acute respiratory failure with hypoxia Code(s): J96.01 - Acute respiratory failure with hypoxia Status: Resolved (4) Anemia Code(s): D64.9 - Anemia, unspecified Status: Acute - Plan 72-year-old male patient who was admitted secondary to respiratory failure, cardiac arrest, PE with intermitted confusion Delirium, metabolic encephalopathy vs some anoxic encephalopathy- IMPROVED -Seroquel discontinued. Neurological status stable -evaluated by neurology. -consulted psychiatry to evaluate cognitive function/competency, patient does not have decision making capacity -awaiting guardian to be appointed Dysphagia- improved -Soft Mechanical with [place] Thick liquids PE -Bilateral pulmonary embolism with cardiac arrest. Required intubation on 2017 extubated on 09/04/2017. s/p TPA -Echocardiogram shows ejection fraction of 50-60%, right atrium severely dilated. Stable from a cardiac standpoint -Continue Eliquis Atrial fibrillation- rate controlled- SR on exam- - on Eliquis - on Cardizem 180 mg po daily - on Lopressor 25 mg po bid - continue to monitor and adjust meds of needed - d/w patient to take meds-- History of respiratory failure- resolved Cardiac arrest secondary PE. Intubated; extubated 09/04. Subsequent pleural effusion requiring chest tube placement and subsequent removal 09/13; prior diagnosis of haemophilus influenza pneumonia; s/p Rocephin -Stable respiratory status currently -Continue Duonebs Anemia -stable. Hemoccult-positive stool: No evidence of active GI bleeding -CBC- stable DVT prophylaxis: Eliquis Discharge Planning: Awaiting guardianship then plan for discharge to [facility]. - patient asking for update today- told him it is monday- will ff up with CM in am Awaiting guardianship for placement- d/w CM per patient - no family here- closes family is a sister in [place]- and he does not want to move there (4) Anemia Qualifiers: Anemia type: unspecified type Qualified Code(s): D64.9 - Anemia, unspecified
--- NOTE | 2017-11-06 09:28 | P.PN ---
Subjective Interval history: no complains up sitting side of the bed- having breakfast good po stated his name "I am here at [facility]" Physical Exam Vital signs: Vital Signs 11/05/17 12:00 11/05/17 16:00 11/05/17 20:00 Temperature 97.8 F 98.2 F 97.8 F Pulse Rate 69 84 82 Respiratory Rate 20 20 18 Blood Pressure 116/74 125/59 L 146/65 H Pulse Oximetry 97 97 95 11/05/17 23:29 11/06/17 04:00 Temperature 97.9 F 97.4 F L Pulse Rate 83 84 Respiratory Rate 18 15 Blood Pressure 123/57 L 136/61 Pulse Oximetry 93 L 95 Intake & Output 11/05/17 11/06/17 11/06/17 18:59 06:59 18:59 Intake Total 960 / 960 440 / 440 Balance 960 / 960 440 / 440 Weight 82.5 kg Intake: Oral 960 / 960 440 / 440 Other: # Voids 6 4 Date of Last Bowel Movement 11/03/17 11/05/17 # Bowel Movements 1 Narrative: awake and alert, oriented x 3, interactive and appropriate Not in distress Regular rhythm Clear breath sounds Abdomen soft nontender no edema Alert awake and oriented to place, person and year. Moves extremities. Normal speech. gait steady Results - Labs CBC & Chem 7: 10/02/17 05:58 10/02/17 05:58 Assessment and Plan - Assessment (1) Pulmonary embolism Code(s): I26.99 - Other pulmonary embolism without acute cor pulmonale Status : Acute (2) Encephalopathy Code(s): G93.40 - Encephalopathy, unspecified Status: Acute (3) Acute respiratory failure with hypoxia Code(s): J96.01 - Acute respiratory failure with hypoxia Status: Resolved (4) Anemia Code(s): D64.9 - Anemia, unspecified Status: Acute - Plan 72-year-old male patient who was admitted secondary to respiratory failure, cardiac arrest, PE with intermitted confusion Delirium, metabolic encephalopathy vs some anoxic encephalopathy- IMPROVED -Seroquel discontinued. Neurological status stable -evaluated by neurology. -consulted psychiatry to evaluate cognitive function/competency, patient does not have decision making capacity -awaiting guardian to be appointed Dysphagia- improved -Soft Mechanical with [place] Thick liquids PE -Bilateral pulmonary embolism with cardiac arrest. Required intubation on 2017 extubated on 09/04/2017. s/p TPA -Echocardiogram shows ejection fraction of 50-60%, right atrium severely dilated. Stable from a cardiac standpoint -Continue Eliquis Atrial fibrillation- rate controlled- SR on exam- - on Eliquis - on Cardizem 180 mg po daily - on Lopressor 25 mg po bid - continue to monitor and adjust meds of needed - d/w patient to take meds-- History of respiratory failure- resolved Cardiac arrest secondary PE. Intubated; extubated 09/04. Subsequent pleural effusion requiring chest tube placement and subsequent removal 09/13; prior diagnosis of haemophilus influenza pneumonia; s/p Rocephin -Stable respiratory status currently -Continue Duonebs Anemia -stable. Hemoccult-positive stool: No evidence of active GI bleeding -CBC- stable DVT prophylaxis: Eliquis Discharge Planning: Awaiting guardianship then plan for discharge to [facility]. - patient asking for update today- told him it is monday- will ff up with CM in am Awaiting guardianship for placement- d/w CM per patient - no family here- closes family is a sister in [place]- and he does not want to move there (4) Anemia Qualifiers: Anemia type: unspecified type Qualified Code(s): D64.9 - Anemia, unspecified
[2017-11-06] MEDS: dilTIAZem CD 180 MG Capsule PO SCH (10:02)
[2017-11-06] MEDS: Metoprolol Tartrate 25 MG Tablet PO SCH ×2 (10:03→21:17)
--- NOTE | 2017-11-07 08:40 | P.PN ---
Subjective Interval history: no complains awake and alert wants to know - update Physical Exam Vital signs: Vital Signs 11/06/17 12:00 11/06/17 16:00 11/06/17 20:00 Temperature 98.5 F 98.2 F 98.2 F Pulse Rate 92 H 95 H 86 Respiratory Rate 20 20 16 Blood Pressure 135/96 H 150/76 H 133/97 H Pulse Oximetry 96 94 L 95 11/07/17 00:00 11/07/17 06:00 Temperature 97.8 F 97.2 F L Pulse Rate 82 79 Respiratory Rate 16 16 Blood Pressure 119/60 118/65 Pulse Oximetry 94 L 96 Intake & Output 11/06/17 11/07/17 11/07/17 18:59 06:59 18:59 Intake Total 840 / 840 240 / 240 Balance 840 / 840 240 / 240 Weight 82.4 kg Intake: Oral 840 / 840 240 / 240 Other: # Voids 3 2 Date of Last Bowel Movement 11/05/17 # Bowel Movements 0 0 Narrative: awake and alert, oriented x 3, interactive and appropriate-know s the president , [facility] Not in distress Regular rhythm Clear breath sounds Abdomen soft nontender no edema Alert awake and oriented to place, person and year. Moves extremities. Normal speech. gait steady Results - Labs CBC & Chem 7: 10/02/17 05:58 10/02/17 05:58 Assessment and Plan - Assessment (1) Pulmonary embolism Code(s): I26.99 - Other pulmonary embolism without acute cor pulmonale Status : Acute (2) Encephalopathy Code(s): G93.40 - Encephalopathy, unspecified Status: Acute (3) Acute respiratory failure with hypoxia Code(s): J96.01 - Acute respiratory failure with hypoxia Status: Resolved (4) Anemia Code(s): D64.9 - Anemia, unspecified Status: Acute - Plan 72-year-old male patient who was admitted secondary to respiratory failure, cardiac arrest, PE with intermitted confusion Delirium, metabolic encephalopathy vs some anoxic encephalopathy- IMPROVED -Seroquel discontinued. Neurological status stable -evaluated by neurology. -consulted psychiatry to evaluate cognitive function/competency, patient does not have decision making capacity- - clinically improving- we will ask Psychiatry daron to assess competency - he got plans for himself- states he wound want to go into a low income apartment- -will d/w CM -awaiting guardian to be appointed Dysphagia- improved -Soft Mechanical with [place] Thick liquids S/P PE -Bilateral pulmonary embolism with cardiac arrest. Required intubation on 2017 extubated on 09/04/2017. s/p TPA -Echocardiogram shows ejection fraction of 50-60%, right atrium severely dilated. Stable from a cardiac standpoint -Continue Eliquis Atrial fibrillation- rate controlled- SR on exam- - on Eliquis - on Cardizem 180 mg po daily - on Lopressor 25 mg po bid - continue to monitor and adjust meds of needed - History of respiratory failure- resolved Cardiac arrest secondary PE. Intubated; extubated 09/04. Subsequent pleural effusion requiring chest tube placement and subsequent removal 09/13; prior diagnosis of haemophilus influenza pneumonia; s/p Rocephin -Stable respiratory status currently -Continue Duonebs Anemia -stable. Hemoccult-positive stool: No evidence of active GI bleeding -CBC- stable DVT prophylaxis: Eliquis Discharge Planning: Awaiting guardianship then plan for discharge to [facility]. - patient asking for update today- will consult casemanagement- again- recommenatins- should we ask for another competency evaluation byPsychaitry ? Awaiting guardianship for placement- d/w CM per patient - no family here- closes family is a sister in [place]- and he does not want to move there (4) Anemia Qualifiers: Anemia type: unspecified type Qualified Code(s): D64.9 - Anemia, unspecified
[2017-11-07] MEDS: dilTIAZem CD 180 MG Capsule PO SCH (09:10)
[2017-11-07] MEDS: Metoprolol Tartrate 25 MG Tablet PO SCH ×2 (09:10→20:19)
[2017-11-08] MEDS: dilTIAZem CD 180 MG Capsule PO SCH (08:21)
[2017-11-08] MEDS: Metoprolol Tartrate 25 MG Tablet PO SCH ×2 (08:21→21:05)
--- NOTE | 2017-11-08 11:49 | P.PN ---
Subjective Interval history: up and ambulating doing great no complains Physical Exam Vital signs: Vital Signs 11/07/17 12:00 11/07/17 16:00 11/07/17 20:00 Temperature 98.1 F 98.2 F 97.8 F Pulse Rate 89 111 H 92 H Respiratory Rate 20 20 16 Blood Pressure 125/76 141/76 H 121/58 L Pulse Oximetry 96 97 97 11/08/17 00:00 11/08/17 04:00 Temperature 97.5 F L 97.7 F Pulse Rate 80 82 Respiratory Rate 16 16 Blood Pressure 115/54 L 110/64 Pulse Oximetry 95 95 Intake & Output 11/07/17 11/08/17 11/08/17 18:59 06:59 18:59 Intake Total 960 / 960 840 / 840 Balance 960 / 960 840 / 840 Weight 82.1 kg Intake: Oral 960 / 960 840 / 840 Other: # Voids 2 4 Date of Last Bowel Movement 11/05/17 # Bowel Movements 2 0 Narrative: awake and alert, oriented x 3, interactive and appropriate- Not in distress Regular rhythm Clear breath sounds Abdomen soft nontender no edema Alert awake and oriented to place, person and year. Moves extremities. Normal speech. gait steady Results - Labs CBC & Chem 7: 10/02/17 05:58 10/02/17 05:58 Assessment and Plan - Assessment (1) Pulmonary embolism Code(s): I26.99 - Other pulmonary embolism without acute cor pulmonale Status : Acute (2) Encephalopathy Code(s): G93.40 - Encephalopathy, unspecified Status: Acute (3) Acute respiratory failure with hypoxia Code(s): J96.01 - Acute respiratory failure with hypoxia Status: Resolved (4) Anemia Code(s): D64.9 - Anemia, unspecified Status: Acute - Plan 72-year-old male patient who was admitted secondary to respiratory failure, cardiac arrest, PE with intermitted confusion Delirium, metabolic encephalopathy vs some anoxic encephalopathy- IMPROVED -Seroquel discontinued. Neurological status stable -evaluated by neurology. -consulted psychiatry to evaluate cognitive function/competency, patient does not have decision making capacity- - clinically improving- we will ask Psychiatry daron to assess competency - he got plans for himself- states he wound want to go into a low income apartment- -will d/w CM -awaiting guardian to be appointed Dysphagia- improved -Soft Mechanical with [place] Thick liquids S/P PE -Bilateral pulmonary embolism with cardiac arrest. Required intubation on 2017 extubated on 09/04/2017. s/p TPA -Echocardiogram shows ejection fraction of 50-60%, right atrium severely dilated. Stable from a cardiac standpoint -Continue Eliquis Atrial fibrillation- rate controlled- SR on exam- - on Eliquis - on Cardizem 180 mg po daily - on Lopressor 25 mg po bid - continue to monitor and adjust meds of needed - History of respiratory failure- resolved Cardiac arrest secondary PE. Intubated; extubated 09/04. Subsequent pleural effusion requiring chest tube placement and subsequent removal 09/13; prior diagnosis of haemophilus influenza pneumonia; s/p Rocephin -Stable respiratory status currently -Continue Duonebs Anemia -stable. Hemoccult-positive stool: No evidence of active GI bleeding -CBC- stable DVT prophylaxis: Eliquis Discharge Planning: Awaiting guardianship then plan for discharge to [facility]. - patient asking for update today- will consult casemanagement- again- recommenatins- should we ask for another competency evaluation byPsychaitry ? Awaiting guardianship for placement- d/w CM per patient - no family here- closes family is a sister in [place]- and he does not want to move there (4) Anemia Qualifiers: Anemia type: unspecified type Qualified Code(s): D64.9 - Anemia, unspecified
[2017-11-09 06:37] VITALS: RESP 18
[2017-11-09] MEDS: Metoprolol Tartrate 25 MG Tablet PO SCH (08:20)
[2017-11-09] MEDS: dilTIAZem CD 180 MG Capsule PO SCH (08:20)
[2017-11-09 08:40] VITALS: O2SAT 95
--- NOTE | 2017-11-09 12:12 | P.PN ---
Subjective Interval history: awake and alert, pleasant and cooperative very interactive and animated Physical Exam Vital signs: Vital Signs 11/08/17 16:00 11/08/17 20:00 11/09/17 00:00 Temperature 97.9 F 97.8 F 98.0 F Pulse Rate 83 84 82 Respiratory Rate 16 20 16 Blood Pressure 125/64 125/68 117/63 Pulse Oximetry 96 93 L 95 11/09/17 04:00 11/09/17 08:00 Temperature 98.2 F 98.6 F Pulse Rate 80 92 H Respiratory Rate 18 18 Blood Pressure 120/71 137/77 Pulse Oximetry 94 L 95 Intake & Output 11/08/17 11/09/17 11/09/17 18:59 06:59 18:59 Intake Total 960 / 960 480 / 480 Output Total 1500 / 1500 200 / 200 Balance -540 / -540 280 / 280 Weight 81.7 kg Intake: Oral 960 / 960 480 / 480 Output: Urine 1500 / 1500 200 / 200 Other: Date of Last Bowel Movement 11/09/17 # Bowel Movements 1 1 Narrative: awake and alert, oriented x 3, interactive and appropriate- Not in distress Regular rhythm Clear breath sounds Abdomen soft nontender no edema Alert awake and oriented to place, person and year. gait steady Results - Labs CBC & Chem 7: 10/02/17 05:58 10/02/17 05:58 Assessment and Plan - Assessment (1) Pulmonary embolism Code(s): I26.99 - Other pulmonary embolism without acute cor pulmonale Status : Acute (2) Encephalopathy Code(s): G93.40 - Encephalopathy, unspecified Status: Acute (3) Acute respiratory failure with hypoxia Code(s): J96.01 - Acute respiratory failure with hypoxia Status: Resolved (4) Anemia Code(s): D64.9 - Anemia, unspecified Status: Acute - Plan 72-year-old male patient who was admitted secondary to respiratory failure, cardiac arrest, PE with intermitted confusion Delirium, metabolic encephalopathy vs some anoxic encephalopathy- IMPROVED -Seroquel discontinued. Neurological status stable -evaluated by neurology. 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 Required intubation on 2017 extubated on 09/04/2017. s/p TPA -Echocardiogram shows ejection fraction of 50-60%, right atrium severely dilated. Stable from a cardiac standpoint -Continue Eliquis Atrial fibrillation- rate controlled- SR on exam- - on Eliquis - on Cardizem 180 mg po daily - on Lopressor 25 mg po bid - continue to monitor and adjust meds of needed - History of respiratory failure- resolved Cardiac arrest secondary PE. Intubated; extubated 09/04. Subsequent pleural effusion requiring chest tube placement and subsequent removal 09/13; prior diagnosis of haemophilus influenza pneumonia; s/p Rocephin -Stable respiratory status currently -Continue Duonebs Anemia -stable. Hemoccult-positive stool: No evidence of active GI bleeding -CBC- stable DVT prophylaxis: Eliquis Discharge Planning: Awaiting guardianship then plan for discharge to [facility]- just informed that accepted to [facility] Awaiting guardianship for placement- d/w CM per patient - no family here- closes family is a sister in [place]- and he does not want to move there (4) Anemia Qualifiers: Anemia type: unspecified type Qualified Code(s): D64.9 - Anemia, unspecified
[2017-11-09 12:30] VITALS: BP 119/66; PULSE 85; TEMP 97.8
--- NOTE | 2017-11-09 13:40 | P.DS ---
Date of admission: 08/27/17 11:01 Primary care physician: UNKNOWN Anticipated date of discharge: 11/09/17 Brief History from admission: This is a 71-year-old male brought to [facility] ED S/P PEA cardiac arrest . Per report the patient had walked into [facility], he was seen to complain of shortness of breath and collapsed. Per EMS he was pulseless on arrival. CPR was initiated. Patient was intubated by EMS. On arrival, CPR was in progress. Patient is intubated and unresponsive unable to provide any history. In the ED the patient again coded with ROSC. The patient was placed on Versed and fentanyl infusion and low-dose norepinephrine infusion currently at 10 mics. Per report of the ED physician and RN the patient was awake , responsive and moving extremities 4 post cardiac arrest. Imaging , stat CT angio for, and CT brain thorax and laboratory studies are pending. Critical care medicine was consulted. Upon my arrival to the ED hematoma right neck and right femoral area from attempted central line,patient moving extremities 4 , currently on Versed 4 mg/hr and fentanyl 100 mcgs/hr ,as well as norepinephrine 10 mcgs/min. Blood pressure 106/60's. 1400 Late entry- CTA - positive B/L pulmonary embolus, hemodynamic instability , now on Levo 12mcgs, Phenyl 100mcgs, Stat ECHO enlarged RV , formal read pending. TPA ordered. DS: Diagnosis - Discharge Diagnosis (1) Pulmonary embolism Status: Acute (2) Encephalopathy Status: Acute (3) Acute respiratory failure with hypoxia Status: Resolved (4) Anemia Status: Acute DS: Summary Hospital Course: 72-year-old male patient who was admitted secondary to respiratory failure, cardiac arrest, PE with intermitted confusion Delirium, metabolic encephalopathy vs some anoxic encephalopathy- IMPROVED -Seroquel discontinued. Neurological status stable -evaluated by neurology. 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 Required intubation on 2017 extubated on 09/04/2017. s/p TPA -Echocardiogram shows ejection fraction of 50-60%, right atrium severely dilated. Stable from a cardiac standpoint -Continue Eliquis Atrial fibrillation- rate controlled- SR on exam- - on Eliquis - on Cardizem 180 mg po daily - on Lopressor 25 mg po bid - continue to monitor and adjust meds of needed - Acute respiratory failure- resolved Cardiac arrest secondary PE. Intubated; extubated 09/04. Subsequent pleural effusion requiring chest tube placement and subsequent removal 09/13; prior diagnosis of haemophilus influenza pneumonia; s/p Rocephin -Stable respiratory status currently -Continue Duonebs Anemia -stable. Hemoccult-positive stool: No evidence of active GI bleeding -CBC- stable DVT prophylaxis: Eliquis - Time Spent with Patient Total time spent providing and/or coordinating discharge services: Greater than 30 minutes Exam Vital signs: Vital Signs 11/08/17 16:00 11/08/17 20:00 11/09/17 00:00 Temperature 97.9 F 97.8 F 98.0 F Pulse Rate 83 84 82 Respiratory Rate 16 20 16 Blood Pressure 125/64 125/68 117/63 Pulse Oximetry 96 93 L 95 11/09/17 04:00 11/09/17 08:00 11/09/17 12:00 Temperature 98.2 F 98.6 F 97.8 F Pulse Rate 80 92 H 85 Respiratory Rate 18 18 18 Blood Pressure 120/71 137/77 119/66 Pulse Oximetry 94 L 95 95 Intake & Output 11/08/17 11/09/17 11/09/17 18:59 06:59 18:59 Intake Total 960 / 960 480 / 480 Output Total 1500 / 1500 200 / 200 Balance -540 / -540 280 / 280 Weight 81.7 kg Intake: Oral 960 / 960 480 / 480 Output: Urine 1500 / 1500 200 / 200 Other: Date of Last Bowel Movement 11/09/17 # Bowel Movements 1 1 Narrative: awake and alert, oriented x 3, interactive and appropriate- Not in distress Regular rhythm Clear breath sounds Abdomen soft nontender no edema Alert awake and oriented to place, person and year. gait steady Results Procedures completed during hospitalization: endotracheal intubation chest tube placement - Impressions ITS Impressions Chest X-Ray 10/06/17 00:00 CONCLUSION: Underinflation with mild atelectasis at the lung bases. Otherwise, no acute finding is identified. Discharge Plan - Discharge Disposition Patient Disposition: 03 Discharge to SNF - Discharge Condition Condition: Stable - Discharge Order Discharge Orders: Discharge Order (Routine); Ordered 11/09/17 Ordered By: Travis Saleem - Discharge Details Anticipated Discharge Date: 11/09/17 - Physicians Team Primary Care Provider: UNKNOWN, Attending Provider: Travis Saleem Other Providers: Reshma Chen MD ; Swati Archer MD ; Ihsan Dougherty MD ; Wolf Lazo MD ; Jesus Montano MD ; [facility],[place] ; [facility],[place] ; Jimbo Valdez MD - Rxs /Orders / Referrals /Forms Prescriptions: New apixaban [Eliquis] 5 mg Tablet 5 mg PO BID RF: 0 diltiazem HCl [Cardizem CD] 180 mg Capsule,Extended Release 24hr 180 mg PO DAILY RF: 0 famotidine 20 mg Tablet 20 mg PO BID RF: 0 metoprolol tartrate 25 mg Tablet 25 mg PO Q12HR RF: 0 multivitamin with folic acid [Thera] 400 mcg Tablet 1 tab PO DAILY RF: 0 potassium chloride [Klor-Con 10] 10 mEq Tablet Extended Release 30 meq PO DAILY RF: 0 sennosides [Senna Lax] 8.6 mg Tablet 17.2 mg PO Q12H PRN (Reason: MODERATE CONSTIPATION) RF: 0 tamsulosin 0.4 mg Capsule,Extended Release 24hr 0.4 mg PO DAILY RF: 0 thiamine HCl (vitamin B1) 100 mg Tablet 100 mg PO DAILY RF: 0 Ambulatory Orders / Order Sets / DME: Complete Blood Count NO Diff (Routine) Timeframe: 20171113 Location: Determined by Patient Ordered By: Travis Saleem Comprehensive Metabolic Panel (Routine) Timeframe: 20171113 Location: Determined by Patient Ordered By: Travis Saleem Referrals: UNKNOWN, [Primary Care Provider] - See Instructions - Discharge Instructions Patient Printed Instructions: Metoprolol (By mouth), Diltiazem (By mouth), Famotidine (By mouth), Potassium Chloride (By mouth), Thiamine (By mouth), Multivitamins, Adult Formula (By mouth), Tamsulosin (By mouth), Apixaban (By mouth), Senna (By mouth), Pulmonary Embolism (DC), Encephalopathy (DC) Additional Instructions: Your Health Problems: Goals to Promote Your Health: * To prevent worsening of your condition * To maintain your health at the optimal level Directions to Meet Your Goals: * Take your medications as prescribed * Follow your dietary instruction * Follow activity as directed * Keep your appointments as scheduled * Take your immunizations and boosters as scheduled * If your symptoms worsen call your PCP * If no PCP go to Urgent Care or Emergency Room Smoking is dangerous to your health. Avoid second hand smoke. You may reach the 24-hour crisis hotline for domestic abuse at .
== END 2017-11-09 19:20 ==
LOC: N04 11:01
PROVIDERS: ADMIT Internal Medicine; ATTEND Internal Medicine